=== PATIENT | female | born 1965 | race Caucasian/White ===

== ENCOUNTER 2022-05-27 17:13 | Emergency (ER) | payer BC ==
[2022-05-27 17:28] VITALS: BP 160/90
--- NOTE | 2022-05-27 20:02 | ED Physician Documentation ---
History of Present Illness - Stated complaint Stated Complaint: ABSCESS ON CHEST - Chief complaint Chief Complaint: General - History obtained from History obtained from: Patient - History of Present Illness Pain level max: 7 Pain level now: 5 - Additonal information Additional information: 57-year-old female states that over the past 5 days she has noticed swelling and redness to the breast. She states she saw her primary care provider today who stated that they felt she had a breast abscess and should go to the ER for drainage. She has had a breast abscess in the past, but that was on the lateral aspect. No fevers. No chills. Worse with palpation, nothing makes it better. Review of Systems Constitutional: denies: Fever, Chills GI: denies: Vomiting, Diarrhea PD PAST MEDICAL HISTORY - Past Medical History Past Medical History: No - Present Medications Home Medications: Ambulatory Orders Medication Instructions Recorded Confirmed Oxycodone HCl/Acetaminophen 1 - 2 each PO Q6H PRN #14 tablet 05/27/22 [Percocet 5-325 mg Tablet] MDD 6 tabs Sulfamethox/Trimeth 800/160 1 each PO BID #14 tablet 05/27/22 [Bactrim Ds 800/160] cephALEXin [Keflex] 500 mg PO Q6H #28 cap 05/27/22 - Allergies Allergies/Adverse Reactions: Allergies Allergy/AdvReac Type Severity Reaction Status Date / Time No Known Drug Allergies Allergy Verified 05/27/22 17:25 - Living Situation Living Situation: reports: With family Living Arrangement: reports: At home - Social History Does the pt have substance abuse?: No - Family History Family history: reports: Non contributory PD ED PE NORMAL - Vitals Vital signs reviewed: Yes - General General: Alert and oriented X 3, No acute distress - HEENT HEENT: Moist mucous membranes - Neck Neck: Supple, no meningeal sign - Cardiac Cardiac: RRR - Respiratory Respiratory: No respiratory distress, Clear bilaterally - Derm Derm: Warm and dry - Neuro Neuro: Alert and oriented X 3 - Free text exam Free text exam: The left breast is erythematous over the nipple, areola and about one third of the way up the breast. There is no streaking. There is a large fluctuant area on the superior aspect of the areola. There is no drainage from the nipple. No skin dimpling. Results - Vitals Vitals: Vital Signs - 24 hr 05/27/22 17:25 Temperature 36.5 C Heart Rate 99 Respiratory 16 Rate Blood Pressure 160/90 H O2 Saturation 96 Oxygen O2 Source Room air - Labs Labs: Microbiology 05/27/22 20:50 Wound Culture - Preliminary Abscess Procedures - Abscess I&D (location) Left breast Preparation: Lidocaine 1%, With epi Incision: Incised with scalpel, Needle aspiration, Purulent drainage, Loculation s broken, Irrigated, Packed, Culture obtained Other: Pt tolerated well, Dressing applied, Antibiotic prescribed PD Medical Decision Making - ED course Complexity details: reviewed results, re-evaluated patient, considered differential, d/w patient, d/w family, d/w eyewear consultant ED course: 57-year-old female with a large left breast abscess. Dr. Taylor, General surgery was consulted and came and evaluated the patient at the bedside. We then performed the incision and drainage together. Packing was placed. There were approximately 15 cc of purulent material removed from the breast. We will place on Bactrim, Keflex. Wound culture performed. Will place on pain medication for home. Patient will follow-up closely with her PCP for wound checks. Recommend mammogram after healing. Patient counseled regarding signs and symptoms for which I believe and urgent re-evaluation would be necessary. Patient with good understanding of and agreement to plan and is comfortable going home at this time This document was made in part using voice recognition software. While efforts a re made to proofread this document, sound alike and grammatical errors may occur. Departure - Departure Disposition: 01 Home, Self Care Clinical Impression: Breast abscess Condition: Good Instructions: ED Abscess IandD Follow-Up: your,doctor in 3 days for wound check [Other] Prescriptions: Sulfamethox/Trimeth 800/160 [Bactrim Ds 800/160] 1 each PO BID #14 tablet cephALEXin [Keflex] 500 mg PO Q6H #28 cap Oxycodone HCl/Acetaminophen [Percocet 5-325 mg Tablet] 1 - 2 each PO Q6H PRN #14 tablet MDD 6 tabs PRN Reason: pain Comments: Please follow-up with your doctor in 3 days for wound check. Keep the wound clean. You may remove the packing tomorrow in the shower. Please take all antibiotics until gone. You can use the medication as needed for pain. You should have a mammogram after this has healed. Your prescriptions were sent to [facility] in [place]. I am prescribing a short course of narcotic pain medication for you. These are potentially dangerous and addictive medications that should be used carefully. These medications may constipate you. Take an fmuq-ndo-buavtrl stool softener (docusate) twice daily with plenty of water while taking these medications. If you go 24 hours without a bowel movement, take mlmh-apt-fownlan miralax, per package instructions. Do not drink or drive while taking these medications. If you received narcotic or sedating medications while in the emergency department, do not drive for 24 hours. Store this medication in a safe, secure place and out of reach of children. It is a violation of federal law to give or sell this medication to another person or to use in a manner other than prescribed. The ED will not refill narcotic prescriptions, including prescriptions lost or stolen. To dispose of unwanted medications: 1. [facility] [address] in [place] has a medication drop box. They accept prescription medications (in pill form) Friday through Friday 9:00 a.m. to 5:00 p.m. 2. [facility] [employer] accepts prescription medications (in pill form only) for disposal year round. Call for more information. 3. Contact the [facility] for the next [facility] sponsored prescription drug collection event. , [phone], or [phone]; Forms: Activity restrictions Discharge Date/Time: 05/27/22 20:58
[2022-05-27] MEDS ORDERED: SULFAMETH/TRIMETH DS 800/160 MG TABLET PO STA (20:44)
[2022-05-27] MEDS ORDERED: cephALEXin 250 MG CAPSULE PO STA (20:44)
[2022-05-27] MEDS ORDERED: oxyCODONE 5 MG TABLET PO STA (20:45)
== END 2022-05-27 20:58 | disposition home or self-care (01) ==
LOC: ED 17:13
DX: N61.1 Abscess of the breast and nipple (principal)
CPT/HCPCS: 10061; 87070; 87205; 99283; 99284; A9270

== ENCOUNTER 2022-10-14 09:57 | Outpatient (CLI) | payer BC ==
--- NOTE | 2022-10-14 09:30 | XRAY Report ---
PROCEDURE: Chest 2 View X-Ray INDICATIONS: PRODUCTIVE COUGH TECHNIQUE: 2 views of the chest were acquired. COMPARISON: None. FINDINGS: Surgical changes and devices: None. Lungs and pleura: No pleural effusions or pneumothorax. Patchy left basilar atelectasis. Mediastinum: Mediastinal contours appear normal. Heart size is normal. Bones and chest wall: No suspicious bony lesions. Overlying soft tissues appear unremarkable. IMPRESSION: Patchy left basilar atelectasis. Progress films are recommended until clear. Reviewed by: Mehdi Eubanks MD on 10/14/2022 9:28 AM PDT Approved by: Mehdi Eubanks MD on 10/14/2022 9:28 AM PDT Station ID: [id number]
[2022-10-14 14:24] LABS: BASOPHILS % (AUTO) 0.6 %; EOSINOPHILS # (AUTO) 0.3 10^3/uL (0.0-0.7); EOSINOPHILS % (AUTO) 4.8 %; HGB - HEMOGLOBIN 10.4 g/dL (12.0-16.0); LYMPHOCYTES # (AUTO) 1.3 10^3/uL (1.5-3.5); LYMPHOCYTES % (AUTO) 24.7 %; MEAN CORPUSCULAR HEMOGLOBIN 31.4 pg (27.0-31.0); MEAN CORPUSCULAR HGB CONC 33.5 g/dL (32.0-36.0); MEAN CORPUSCULAR VOLUME 93.7 fL (81.0-99.0); MEAN PLATELET VOLUME 11.2 fL (7.9-10.8); MONOCYTES # (AUTO) 0.4 10^3/uL (0.0-1.0); MONOCYTES % (AUTO) 6.7 %; NEUTROPHILS # (AUTO) 3.3 10^3/uL (1.5-6.6); PLT - PLATELET COUNT 47 10^3/uL (130-450); RED BLOOD COUNT 3.31 10^6/uL (4.20-5.40); RED CELL DISTRIBUTION WIDTH 14.7 % (12.0-15.0); WHITE BLOOD COUNT 5.2 x10^3/uL (4.8-10.8)
[2022-10-14 14:46] LABS: ALBUMIN 3.2 g/dL (3.2-5.5); BILIRUBIN,TOTAL 0.9 mg/dL (0.2-1.0); CREATININE 1.4 mg/dL (0.6-1.3); POTASSIUM 4.2 mmol/L (3.5-4.5); TOTAL PROTEIN 6.3 g/dL (6.4-8.9)
[2022-10-14 14:58] LABS: THYROID STIMULATING HORMONE 1.55 uIU/mL (0.34-5.60)
== END 2022-10-14 09:58 | disposition home or self-care (01) ==
LOC: DI.S 09:57
PROVIDERS: ATTEND Physician Assistant Medical
DX: R05.9 Cough, unspecified (principal); R53.83 Other fatigue; Z13.29 Encounter for screening for other suspected endocrine disorder; J98.11 Atelectasis
CPT/HCPCS: 36415; 80053; 84443; 85025

== ENCOUNTER 2022-12-15 11:40 | Emergency (ER) | payer BC ==
--- NOTE | 2022-12-15 15:09 | ED Physician Documentation ---
History of Present Illness - Stated complaint Stated Complaint: HBP,NAUSEA,MCGINNIS - Chief complaint Chief Complaint: General - Additonal information Additional information: 57-year-old female was brought to the emergency department by her partner for evaluation of elevated blood pressures and her partner is concerned that she is acting foggy and spacey. She does have a history of hypertension. Was seen in this ED on 11/26/2022 for concerns of hypertension, headache and brain fog. Work-up at that time was unremarkable. CT of the head was negative. She did receive a single dose of clonidine in the ER. And follow-up with her primary care provider her lisinopril was increased to 40 mg a day and she was started on hydrochlorothiazide. Partner states that they have been checking her blood pressures at home on her wrist and they have been as high as 220 systolic. The patient denies chest pain or shortness of air. No leg swelling. No headache today. No focal neurodeficits. Denying abdominal pain nausea and vomiting. Patient is scheduled to see cardiology for an echo next week. Review of Systems Constitutional: denies: Fever Nose: reports: Reviewed and negative Cardiac: reports: Reviewed and negative Respiratory: reports: Reviewed and negative GI: reports: Reviewed and negative : reports: Reviewed and negative Skin: reports: Reviewed and negative Musculoskeletal: reports: Reviewed and negative Neurologic: denies: Generalized weakness, Focal weakness, Numbness, Difficulty speaking, Confused, Headache, Head injury, LOC PD PAST MEDICAL HISTORY - Past Medical History Cardiovascular: Hypertension - Past Surgical History Past Surgical History: No - Present Medications Home Medications: Ambulatory Orders Medication Instructions Recorded Confirmed Glimepiride [Amaryl] 4 mg PO 0800 12/15/22 12/15/22 Lisinopril [Zestril] 10 mg PO DAILY 12/15/22 12/15/22 hydroCHLOROthiazide [Hydrodiuril] 25 mg PO ONCE 12/15/22 12/15/22 - Allergies Allergies/Adverse Reactions: Allergies Allergy/AdvReac Type Severity Reaction Status Date / Time No Known Drug Allergies Allergy Verified 11/26/22 15:05 - Social History Does the pt smoke?: No Smoking Status: Never smoker Does the pt drink ETOH?: No Does the pt have substance abuse?: No - Immunizations Immunizations are current?: Yes - POLST Patient has POLST: No PD ED PE NORMAL - General General: Alert and oriented X 3, No acute distress, Well developed/nourished - HEENT HEENT: Atraumatic, Moist mucous membranes - Neck Neck: Supple, no meningeal sign - Cardiac Cardiac: RRR, No murmur - Respiratory Respiratory: No respiratory distress, Clear bilaterally - Abdomen Abdomen: Normal bowel sounds, Soft - Back Back: No CVA TTP - Derm Derm: Normal color - Extremities Extremities: No deformity - Neuro Neuro: Alert and oriented X 3, 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 Relevant findings are: Rate: Rate (enter#) Rhythm: NSR [place]: Normal Intervals: Normal WI. No: Prolonged QT QRS: Normal Ischemia: Q waves (v2-4) Compare to prior EKG: Unchanged from prior EKG Computer interpretation: Agree with computer - Labs Labs: Laboratory Tests 12/15/22 12/15/22 15:23 15:23 WBC 5.4 RBC 3.70 L Hgb 11.1 L Hct 33.2 L MCV 89.7 MCH 30.0 MCHC 33.4 RDW 14.8 Plt Count 41 L MPV 11.5 H Neut # (Auto) 3.6 Lymph # (Auto) 1.2 L Payette # (Auto) 0.3 Eos # (Auto) 0.3 Baso # (Auto) 0.0 Absolute Nucleated RBC 0.00 Nucleated RBC % 0.0 Sodium 135 Potassium 3.7 Chloride 101 Carbon Dioxide 31 Anion Gap 3.0 L BUN 28 H Creatinine 1.5 H Estimated GFR (MDRD) 36 L Glucose 196 H Calcium 9.7 Total Bilirubin 1.2 H AST 23 ALT 16 Alkaline Phosphatase 73 Total Protein 6.6 Albumin 3.6 Globulin 3.0 Albumin/Globulin Ratio 1.2 Lipase 48 - Rads (name of study) cxr Relevant Findings:: Final report received (Portable chest within normal limits for age.) PD Medical Decision Making - ED course Complexity details: reviewed results, re-evaluated patient, considered dif ferential, d/w patient, d/w family ED course: 57-year-old female presents to the emergency department for evaluation of elevated blood pressure readings at home as well as her partners can discern that the patient has had episodes of confusion and brain fogging. This has been intermittent over the last several weeks. She describes her partner is acting and behaving normally yesterday but today she found her somewhat confused. She did have a similar ED visit 11/26/2022 for similar. At that time CT of the head was negative. She was noted to have modest hypertension and received clonidine in the ER. Patient followed up with her primary care doctor and had her lisinopril dosing increased to 40 mg daily as well as was started on hydrochlorothiazide. On presentation to the emergency department today her blood pressure is modestly elevated 155/88 and then again 158/82. EKG was sinus. No fevers. No hypoxia. Clinical exam reveals no focal neurodeficits. Very fluid speech oriented person place time and situation. Twelve-lead EKG was nonischemic. A chest x-ray showed no findings focal consolidation pneumonia pneumothorax or pleural effusion. We did reobtain CBC and electrolytes. Per my interpretation essentially unchanged anemia with a hemoglobin of 11.1. No left shift. She does have a modest thrombocytopenia with a platelet count of 41 but again unchanged from baseline. She has what appears to be chronic kidney disease with an unchanged BUN of 28 and a creatinine of 1.5 today. Patient and her partner report that she is scheduled to undergo an echocardiogram in several weeks. Clinically I considered stroke or CVA however given no focal neurodeficits and recent negative CT imaging I deferred repeat CT head of the today. Her NIHSS on presentation is 0. I considered electrolyte abnormality but no significant or worrisome derangement that would be causative of brain fogging. The patient does have a long history of alcohol use disorder though she quit 12 years ago. I am encouraging patient and her partner to follow closely with PCP. She may benefit from outpatient neuropsychiatric evaluation or even consideration of early dementia. Regarding the patient's blood pressure no evidence today of hypertensive urgency or emergency. She will follow closely with PCP. I did asked them to consider discussing the use of an MICHELLE inhibitor in the setting of chronic kidney disease and discussed possibility of all other alternatives. Departure - Departure Disposition: 01 Home, Self Care Clinical Impression: Confusion Hypertension Qualifiers: Hypertension type: primary hypertension Qualified Code(s): I10 - Essential (primary) hypertension CKD (chronic kidney disease) Qualifiers: Chronic kidney disease stage: unspecified stage Qualified Code(s): N18.9 - Chronic kidney disease, unspecified Condition: Stable Follow-Up: AUSTYN WHIPPLE MD [Primary Care Provider] - Comments: Kendy you are seen today in the emergency department for concerns of brain fogging or confusion as well as elevated blood pressure. Your blood pressures today have been about 1 50-1 60 systolic. I would recommend that you continue checking your blood pressure just before you take your a.m. meds and several hours afterwards. Please use an appropriate sized cuff on your upper arm. Reasons to return to the emergency department regarding your blood pressure would be the development of any new sudden severe headache, uncontrolled vomiting, chest pain, shortness of air. Your partner is confused that you have had some brain fogging and confusion that comes and goes. A CT of the head completed on 26 November was normal. I would recommend that you obtain an outpatient MRI for further evaluation of the symptoms. Your primary doctor can also consider referral for neurocognitive evaluation. However there was nothing today in your labs or clinical exam that would warrant an admission or further evaluation in the ER. If you develop slurred speech, have facial droop, focal weakness in your arms or legs then please return immediately to the ER. Forms: PCP List
--- NOTE | 2022-12-15 15:16 | XRAY Report ---
PROCEDURE: Chest 1 View X-Ray INDICATIONS: Chest pain TECHNIQUE: One view of the chest was acquired. COMPARISON: 10/14/2022 FINDINGS: Surgical changes and devices: None. Lungs and pleura: No pleural effusions or pneumothorax. Lungs are clear. Mediastinum: The aorta is prominent and tortuous. The cardiac contours are within normal limits. Bones and chest wall: No suspicious bony lesions. Age-appropriate degenerative changes are seen. O verlying soft tissues appear unremarkable. IMPRESSION: Portable chest within normal limits for age. Reviewed by: Narendra Valiente MD on 12/15/2022 2:14 PM NANCY Approved by: Narendra Valiente MD on 12/15/2022 2:14 PM NANCY Station ID: [id number]
[2022-12-15 15:31] LABS: BASOPHILS % (AUTO) 0.6 %; EOSINOPHILS # (AUTO) 0.3 10^3/uL (0.0-0.7); EOSINOPHILS % (AUTO) 4.8 %; HCT - HEMATOCRIT 33.2 % (37.0-47.0); HGB - HEMOGLOBIN 11.1 g/dL (12.0-16.0); LYMPHOCYTES # (AUTO) 1.2 10^3/uL (1.5-3.5); LYMPHOCYTES % (AUTO) 22.9 %; MEAN CORPUSCULAR HGB CONC 33.4 g/dL (32.0-36.0); MEAN CORPUSCULAR VOLUME 89.7 fL (81.0-99.0); MEAN PLATELET VOLUME 11.5 fL (7.9-10.8); MONOCYTES # (AUTO) 0.3 10^3/uL (0.0-1.0); MONOCYTES % (AUTO) 5.9 %; NEUTROPHILS # (AUTO) 3.6 10^3/uL (1.5-6.6); NEUTROPHILS % (AUTO) 65.6 %; PLT - PLATELET COUNT 41 10^3/uL (130-450); RED CELL DISTRIBUTION WIDTH 14.8 % (12.0-15.0); WHITE BLOOD COUNT 5.4 x10^3/uL (4.8-10.8)
[2022-12-15 15:46] LABS: ALBUMIN 3.6 g/dL (3.2-5.5); ALBUMIN/GLOBULIN RATIO 1.2 (1.0-2.2); BILIRUBIN,TOTAL 1.2 mg/dL (0.2-1.0); CALCIUM 9.7 mg/dL (8.5-10.3); CREATININE 1.5 mg/dL (0.6-1.3); POTASSIUM 3.7 mmol/L (3.5-4.5); TOTAL PROTEIN 6.6 g/dL (6.4-8.9)
[2022-12-15 16:34] VITALS: BP 160/94; O2SAT 97
== END 2022-12-15 16:32 | disposition home or self-care (01) ==
LOC: ED 11:40
DX: I12.9 Hypertensive chronic kidney disease with stage 1 through stage 4 chronic kidney disease, or unspecified chronic kidney disease (principal); N18.9 Chronic kidney disease, unspecified; R41.0 Disorientation, unspecified
CPT/HCPCS: 36415; 80053; 83690; 84484; 85025; 93005; 99284

== ENCOUNTER 2023-02-24 11:04 | Outpatient (CLI) | payer BC | END 2023-02-24 23:59 | disposition critical access hospital (66) | LOC: EMS 11:04 | DX: R41.0 Disorientation, unspecified (principal); R32 Unspecified urinary incontinence | CPT/HCPCS: A0425; A0429 ==

== ENCOUNTER 2023-02-24 11:30 | Inpatient (IN) | payer BC ==
[2023-02-24 12:09] LABS: VBG BASE EXCESS 4.2 mmol/L (-2 - +2); VBG HCO3 30.3 mmol/L (23-28); VBG OXYGEN SATURATION 49.7 % (60-80); VBG PCO2 51.6 mmHg (41-51); VBG PH 7.386 (7.31-7.41); VBG PO2 27.7 mmHg (25-47); VBG TOTAL CO2 31.8 mmol/L (24-29)
--- NOTE | 2023-02-24 12:12 | XRAY Report ---
PROCEDURE: Chest 1V INDICATIONS: AMS TECHNIQUE: One view of the chest was acquired. COMPARISON: None. FINDINGS: Surgical changes and devices: None. Lungs and pleura: No pleural effusions or pneumothorax. Lungs are clear. Mediastinum: Mediastinal contours appear normal. Heart size is normal. Bones and chest wall: No suspicious bony lesions. Overlying soft tissues appear unremarkable. IMPRESSION: No acute cardiopulmonary process. Reviewed by: Inder Dominguez MD on 02/24/2023 12:10 PM PST Approved by: Inder Dominguez MD on 02/24/2023 12:10 PM PST Station ID: [id number]
[2023-02-24 12:15] LABS: BASOPHILS % (AUTO) 0.6 %; EOSINOPHILS # (AUTO) 0.2 10^3/uL (0.0-0.7); EOSINOPHILS % (AUTO) 4.6 %; HCT - HEMATOCRIT 34.1 % (37.0-47.0); HGB - HEMOGLOBIN 11.4 g/dL (12.0-16.0); LYMPHOCYTES # (AUTO) 0.9 10^3/uL (1.5-3.5); MEAN CORPUSCULAR HEMOGLOBIN 30.7 pg (27.0-31.0); MEAN CORPUSCULAR HGB CONC 33.4 g/dL (32.0-36.0); MEAN CORPUSCULAR VOLUME 91.9 fL (81.0-99.0); MEAN PLATELET VOLUME 9.7 fL (7.9-10.8); MONOCYTES # (AUTO) 0.4 10^3/uL (0.0-1.0); MONOCYTES % (AUTO) 7.5 %; NEUTROPHILS # (AUTO) 3.6 10^3/uL (1.5-6.6); NEUTROPHILS % (AUTO) 68.9 %; RED BLOOD COUNT 3.71 10^6/uL (4.20-5.40); RED CELL DISTRIBUTION WIDTH 15.2 % (12.0-15.0); WHITE BLOOD COUNT 5.2 x10^3/uL (4.8-10.8)
[2023-02-24 12:18] LABS: INR 1.2 (0.8-1.2); PT - PROTHROMBIN TIME 12.8 secs (9.9-12.6)
[2023-02-24 12:24] LABS: ALBUMIN 3.5 g/dL (3.2-5.5); ALKALINE PHOSPHATASE 70 IU/L (42-121); ALT ALANINE AMINOTRANSFERASE 18 IU/L (10-60); AST ASPARTATE AMINOTRANSFERASE 25 IU/L (10-42); BILIRUBIN,TOTAL 1.4 mg/dL (0.2-1.0); BUN - BLOOD UREA NITROGEN 28 mg/dL (6-20); CALCIUM 9.4 mg/dL (8.5-10.3); CARBON DIOXIDE - CO2 32 mmol/L (21-32); CHLORIDE 106 mmol/L (101-111); CREATININE 1.6 mg/dL (0.6-1.3); ETOH - ETHANOL < 10.0 mg/dL; GFR - MDRD 33 (>89); GLUCOSE 278 mg/dL (74-104); LIPASE 54 U/L (11-82); MAGNESIUM 1.6 mg/dL (1.7-2.3); POTASSIUM 4.1 mmol/L (3.5-4.5); SODIUM 142 mmol/L (135-145); TOTAL PROTEIN 6.9 g/dL (6.4-8.9)
[2023-02-24 12:32] LABS: PLATELET ESTIMATE, MANUAL DECREASED (<130,000) (NORMAL); PLATELET MORPHOLOGY NORMAL APPEARANCE (NORMAL); PLT - PLATELET COUNT 33 10^3/uL (130-450); SLIDE REVIEW? Indicated
[2023-02-24 12:35] LABS: RBC MORPHOLOGY (MULTIPLE) 1+ ANISOCYTOSIS (NORMAL)
[2023-02-24 12:36] LABS: WBC MORPHOLOGY (MULTIPLE) NORMAL APPEARANCE (NORMAL)
[2023-02-24 12:38] LABS: THYROID STIMULATING HORMONE 2.44 uIU/mL (0.34-5.60)
[2023-02-24 12:41] LABS: SALICYLATE < 1.5 mg/dL
[2023-02-24 12:42] LABS: ACETAMINOPHEN < 0.1 ug/mL
[2023-02-24] MEDS ORDERED: LACTULOSE 10 GM /15 ML UDC PO STA (12:42)
[2023-02-24 13:12] LABS: BILIRUBIN,URINE NEGATIVE (NEGATIVE); GLUCOSE, URINE (UA) 100 mg/dL (NEGATIVE); KETONES,URINE (UA) NEGATIVE (NEGATIVE); LEUKOCYTE ESTERASE, URINE NEGATIVE (NEGATIVE); NITRITE,URINE NEGATIVE (NEGATIVE); OCCULT BLOOD,URINE LARGE (NEGATIVE); PH,URINE 7.5 PH (5.0-7.5); PROTEIN,URINE 30 mg/dL (NEGATIVE); UROBILINOGEN,URINE 2 E.U./dL (NORMAL)
[2023-02-24 13:25] LABS: CLARITY,URINE CLEAR (CLEAR)
[2023-02-24 13:26] LABS: BACTERIA,URINE None Seen /HPF (None Seen); SQUAMOUS EPITHELIAL CELL,UR FEW Squamous (<= Few); WBC,URINE 0-3 /HPF (0-5)
--- NOTE | 2023-02-24 13:37 | CT Report ---
PROCEDURE: HEAD WO INDICATIONS: AMS TECHNIQUE: Noncontrast 4.5 mm thick angled axial sections acquired from the foramen magnum to the vertex. For r adiation dose reduction, the following was used: automated exposure control, adjustment of mA and/or kV according to patient size. COMPARISON: None. FINDINGS: Image quality: Excellent. CSF spaces: Basal cisterns are patent. No extra-axial fluid collections. Ventricles are normal in size and shape. Brain: No midline shift. No intracranial masses or hemorrhage. Goss-white matter interface is norm al. Leukoaraiosis, commonly caused by chronic small vessel ischemic disease. Age-related volume loss . Skull and face: Calvarium and visualized facial bones are intact, without suspicious lesions. Sinuses: Visualized sinuses and mastoids are clear. IMPRESSION: No acute intracranial pathology. Reviewed by: Inder Dominguez MD on 02/24/2023 1:36 PM [facility] Approved by: Inder Dominguez MD on 02/24/2023 1:36 PM [facility] Station ID: [id number]
--- NOTE | 2023-02-24 13:42 | ED Physician Documentation ---
PD HPI ALTERED MENTAL STATUS - Stated complaint Stated Complaint: AMS - Chief complaint Chief Complaint: Neuro - History obtained from History obtained from: Patient - Additional information Additional information: 57-year-old female with history of diabetes, COPD, remote history of alcohol abuse (sober 12+ years per partner) presents by EMS from home for altered mental status. History obtained from EMS and the patient's partner Katina. Per patient's partner the patient has had intermittent episodes of confusion since November. Normally these are resolved by sending the patient back to bed and sleeping for a little bit, however today was different. She woke up around 6 AM and noticed that the patient was walking around asking where the restroom was and urinating on herself while walking around. She tried to clean her up and put her back to bed, but when she woke up several hours later she was still confused and altered and called 911. EMS reported that Accu-Chek was 270 in route. They administered some IV fluids and transported her for further evaluation. On assessment patient has her eyes closed. Denies pain or complaints, she does not know why she is in the emergency department. Review of Systems Unable to obtain: Confused PD PAST MEDICAL HISTORY - Past Medical History Cardiovascular: Hypertension - Past Surgical History Past Surgical History: No - Present Medications Home Medications: Ambulatory Orders Medication Instructions Recorded Confirmed Glimepiride [Amaryl] 4 mg PO 0800 12/15/22 02/24/23 Lisinopril [Zestril] 10 mg PO DAILY 12/15/22 02/24/23 hydroCHLOROthiazide [Hydrodiuril] 25 mg PO ONCE 12/15/22 02/24/23 - Allergies Allergies/Adverse Reactions: Allergies Allergy/AdvReac Type Severity Reaction Status Date / Time No Known Drug Allergies Allergy Verified 11/26/22 15:05 - Social History Does the pt smoke?: No Smoking Status: Never smoker Does the pt drink ETOH?: No Does the pt have substance abuse?: No - Immunizations Immunizations are current?: Yes - POLST Patient has POLST: No PD ED PE NORMAL - Vitals Vital signs reviewed: Yes - General General: No acute distress, Other (AO x 1, eyes closed, open to voice, appears chronically unwell) - HEENT HEENT: Atraumatic, PERRL, EOMI - Cardiac Cardiac: RRR, Strong equal pulses - Respiratory Respiratory: No respiratory distress - Abdomen Abdomen: Soft, Non tender, Non distended - Derm Derm: Warm and dry, Other (caput medusa on abdomen) - Extremities Extremities: No deformity, No tenderness to palpate, Normal ROM s pain - Neuro 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 Moves all extremities. Oriented to self only) Results - Vitals Vitals: Vital Signs - 24 hr 02/24/23 02/24/23 11:39 14:03 Temperature 37.1 C Heart Rate 76 77 Respiratory 18 18 Rate Blood Pressure 194/103 H 179/89 H O2 Saturation 95 97 If not protocol 2 : Oxygen Flow, liters/minute Oxygen O2 Source Nasal cannula - Labs Labs: Laboratory Tests 02/24/23 02/24/23 02/24/23 11:53 11:53 11:53 WBC 5.2 RBC 3.71 L Hgb 11.4 L Hct 34.1 L MCV 91.9 MCH 30.7 MCHC 33.4 RDW 15.2 H Plt Count 33 L* MPV 9.7 Neut # (Auto) 3.6 Lymph # (Auto) 0.9 L [place] # (Auto) 0.4 Eos # (Auto) 0.2 Baso # (Auto) 0.0 Absolute Nucleated RBC 0.00 Nucleated RBC % 0.0 Manual Slide Review Indicated WBC Morphology NORMAL APPEARANCE Platelet Estimate DECREASED (<130,000) Platelet Morphology NORMAL APPEARANCE RBC Morph Micro Appear 1+ ANISOCYTOSIS PT 12.8 H INR 1.2 VBG pH VBG pCO2 VBG pO2 VBG HCO3 VBG Total CO2 VBG O2 Saturation VBG Base Excess Sodium 142 Potassium 4.1 Chloride 106 Carbon Dioxide 32 Anion Gap 4.0 L BUN 28 H Creatinine 1.6 H Estimated GFR (MDRD) 33 L Glucose 278 H Lactic Acid Calcium 9.4 Magnesium 1.6 L Total Bilirubin 1.4 H AST 25 ALT 18 Alkaline Phosphatase 70 Ammonia Total Protein 6.9 Albumin 3.5 Globulin 3.4 Albumin/Globulin Ratio 1.0 Lipase 54 TSH 2.44 Urine Color Urine Clarity Urine pH Ur Specific [place] Urine Protein Urine Glucose (UA) Urine Ketones Urine Occult Blood Urine Nitrite Urine Bilirubin Urine Urobilinogen Ur Leukocyte Esterase Urine RBC Urine WBC Ur Squamous Epith Cells Urine Bacteria Ur Microscopic Review Urine Culture Comments Salicylates < 1.5 Urine Opiates Screen Ur Buprenorphine Scrn Ur Oxycodone Screen Urine Methadone Screen Acetaminophen < 0.1 Ur Barbiturates Screen Ur Tricyclics Screen Ur Phencyclidine Scrn Ur Amphetamine Screen U Methamphetamines Scrn U Benzodiazepines Scrn Urine Cocaine Screen U Cannabinoids Screen Ur Drug Screen Comment Ethyl Alcohol < 10.0 02/24/23 02/24/23 02/24/23 11:53 11:59 11:59 WBC RBC Hgb Hct MCV MCH MCHC RDW Plt Count MPV Neut # (Auto) Lymph # (Auto) [place] # (Auto) Eos # (Auto) Baso # (Auto) Absolute Nucleated RBC Nucleated RBC % Manual Slide Review WBC Morphology Platelet Estimate Platelet Morphology RBC Morph Micro Appear PT INR VBG pH 7.386 VBG pCO2 51.6 H VBG pO2 27.7 VBG HCO3 30.3 H VBG Total CO2 31.8 H VBG O2 Saturation 49.7 L VBG Base Excess 4.2 H Sodium Potassium Chloride Carbon Dioxide Anion Gap BUN Creatinine Estimated GFR (MDRD) Glucose Lactic Acid 1.0 Calcium Magnesium Total Bilirubin AST ALT Alkaline Phosphatase Ammonia 85.5 H* Total Protein Albumin Globulin Albumin/Globulin Ratio Lipase TSH Urine Color Urine Clarity Urine pH Ur Specific [place] Urine Protein Urine Glucose (UA) Urine Ketones Urine Occult Blood Urine Nitrite Urine Bilirubin Urine Urobilinogen Ur Leukocyte Esterase Urine RBC Urine WBC Ur Squamous Epith Cells Urine Bacteria Ur Microscopic Review Urine Culture Comments Salicylates Urine Opiates Screen Ur Buprenorphine Scrn Ur Oxycodone Screen Urine Methadone Screen Acetaminophen Ur Barbiturates Screen Ur Tricyclics Screen Ur Phencyclidine Scrn Ur Amphetamine Screen U Methamphetamines Scrn U Benzodiazepines Scrn Urine Cocaine Screen U Cannabinoids Screen Ur Drug Screen Comment Ethyl Alcohol 02/24/23 02/24/23 12:00 13:01 WBC RBC Hgb Hct MCV MCH MCHC RDW Plt Count MPV Neut # (Auto) Lymph # (Auto) [place] # (Auto) Eos # (Auto) Baso # (Auto) Absolute Nucleated RBC Nucleated RBC % Manual Slide Review WBC Morphology Platelet Estimate Platelet Morphology RBC Morph Micro Appear PT INR VBG pH VBG pCO2 VBG pO2 VBG HCO3 VBG Total CO2 VBG O2 Saturation VBG Base Excess Sodium Potassium Chloride Carbon Dioxide Anion Gap BUN Creatinine Estimated GFR (MDRD) Glucose Lactic Acid Calcium Magnesium Total Bilirubin AST ALT Alkaline Phosphatase Ammonia Total Protein Albumin Globulin Albumin/Globulin Ratio Lipase TSH Urine Color YELLOW Urine Clarity CLEAR Urine pH 7.5 Ur Specific [place] 1.010 Urine Protein 30 H Urine Glucose (UA) 100 H Urine Ketones NEGATIVE Urine Occult Blood LARGE H Urine Nitrite NEGATIVE Urine Bilirubin NEGATIVE Urine Urobilinogen 2 H Ur Leukocyte Esterase NEGATIVE Urine RBC 11-25 H Urine WBC 0-3 Ur Squamous Epith Cells FEW Squamous Urine Bacteria None Seen Ur Microscopic Review INDICATED Urine Culture Comments NOT INDICATED Salicylates Urine Opiates Screen NEGATIVE Ur Buprenorphine Scrn NEGATIVE Ur Oxycodone Screen NEGATIVE Urine Methadone Screen NEGATIVE Acetaminophen Ur Barbiturates Screen NEGATIVE Ur Tricyclics Screen NEGATIVE Ur Phencyclidine Scrn NEGATIVE Ur Amphetamine Screen NEGATIVE U Methamphetamines Scrn NEGATIVE U Benzodiazepines Scrn NEGATIVE Urine Cocaine Screen NEGATIVE U Cannabinoids Screen NEGATIVE Ur Drug Screen Comment CUTOFF CONC BELOW: Ethyl Alcohol PD Medical Decision Making - ED course Complexity details: reviewed old records, reviewed results, re-evaluated patient, considered differential, d/w patient, d/w family ED course: Altered mental status and patient with remote history of alcohol use disorder. No focal deficit, patient's eyes are closed and she is obviously confused, but moves all extremities and currently denies complaints. Laboratory work is significant for thrombocytopenia with platelets 33, patient's baseline platelet count appears to be in the low 40s. INR 1.2, Creatinine 1.6, not significantly changed from baseline. Total bilirubin 1.4, not changed from baseline, AST and ALT are within normal limits. Patient's ammonia level 85.5, likely contributing to patient's mental status. P.o. lactulose ordered. CT brain and chest x-ray showed no acute processes. Nursing reports patient had coughing episode with wheezing and was placed on supplemental nasal cannula. Soft expiratory wheezes heard, patient is long-time smoker but partner denies hx of COPD. Patient is unable to tolerate p.o. lactulose, unable to follow directions to swallow the liquid. Discussed case with patient's partner, who is amenable to NG tube placement for lactulose administration. Patient to be admitted to hospitalist service for further treatment Departure - Departure Disposition: 66 [facility] DC/Xfer Clinical Impression: Metabolic encephalopathy Cirrhosis Qualifiers: Hepatic cirrhosis type: unspecified hepatic cirrhosis Ascites presence: without ascites Qualified Code(s): K74.60 - Unspecified cirrhosis of liver Condition: Stable Discharge Date/Time: 02/24/23 16:45
[2023-02-24 14:20] LABS: COCAINE SCREEN URINE NEGATIVE (NEGATIVE); METHAMPHETAMINES SCREEN, URINE NEGATIVE (NEGATIVE); THC CANNABINOID SCREEN, URINE NEGATIVE (NEGATIVE)
[2023-02-24 14:21] LABS: AMPHETAMINE SCREEN,URINE NEGATIVE (NEGATIVE); BARBITURATE SCREEN,UR NEGATIVE (NEGATIVE); BENZODIAZEPINES SCREEN, URINE NEGATIVE (NEGATIVE); BUPRENORPHINE SCREEN, URINE NEGATIVE (NEGATIVE); METHADONE SCREEN, URINE NEGATIVE (NEGATIVE); OPIATE SCREEN, URINE NEGATIVE (NEGATIVE); OXYCODONE SCREEN, URINE NEGATIVE (NEGATIVE); TRICYCLIC ANTIDEPRESSANT,URINE NEGATIVE (NEGATIVE)
--- NOTE | 2023-02-24 14:35 | Ultrasound Report ---
PROCEDURE: Abdomen Limited INDICATIONS: LIVER DISEASE TECHNIQUE: Real-time focused scanning was performed of the abdomen, with image documentation. COMPARISONS: None. FINDINGS: Liver: Cirrhotic liver morphology. No definite mass, although evaluation is suboptimal due to patien t's dyspnea. Patent portal vein and hepatic vein. Recannulized umbilical vein. Gallbladder: Diffuse wall thickening due to underlying liver disease. Negative sonographic [place] sig n. No stones. Biliary ducts: Intrahepatic bile ducts are non-dilated. Extrahepatic bile duct caliber measures 3 m m. Normal is 6-7 mm or less in diameter, or 10 mm or less post-cholecystectomy. Pancreas: Not well visualized due to overlying bowel gas. IMPRESSION: Cirrhosis with portal hypertension. No definite mass. Reviewed by: Inder Dominguez MD on 02/24/2023 2:34 PM PST Approved by: Inder Dominguez MD on 02/24/2023 2:34 PM PST Station ID: [id number]
[2023-02-24] MEDS ORDERED: IPRATROPIUM/ALBUTEROL 3 ML NEB INH STA (15:06)
[2023-02-24] MEDS ORDERED: SODIUM CHLORIDE FLUSH 0.9% 10 ML SYRINGE IVP PRN (15:11)
[2023-02-24] MEDS ORDERED: ONDANSETRON 4 MG/2 ML VIAL IVP PRN (15:11)
--- NOTE | 2023-02-24 15:18 | HISTORY & PHYSICAL EXAMINATION ---
Chief Complaint - Chief Complaint Chief Complaint: Confusion History of Present Illness - Admitted From Admitted From:: ED - History Obtained From Records Reviewed: Yes History obtained from: Partner - History of Present Illness HPI Comment/Other: Patient is a 57-year-old female with past medical history of type 2 diabetes, alcoholic cirrhosis (sober 12 years), hypertension who presented to the ED due to progressively worsening confusion since November. Her partner reports that her symptoms peaked today and she noticed the patient was walking around asking where the restroom was and urinating on herself. In the ED a CT head was performed which was unremarkable. Right upper quadrant ultrasound was also performed showing cirrhosis with portal hypertension. Patient was noted to have an elevated ammonia and was started on lactulose via NG tube placement and she was unable to swallow. Patient also had hematuria and there is some suspicion for urinary tract infection. There has been continued workup regarding the source of her encephalopathy. She recently had a neurology follow-up where they performed an MRI which revealed evidence of some encephalomalacia. She is also had a TTE which shows a preserved EF. Patient had an A1c of 7.6 in December. She does follow-up with a communications technologist in [place] named Dr. Bonilla. Partner reports that she has yearly EGDs and has a history of a duodenal polyp removal. Unclear if patient has any esophageal varices. Had been on lactulose many years ago but was discontinued and she had been fine off of it. Patient is a full code. History - Past Medical History Cardiovascular: reports: Hypertension MRSA Hx?: No - Family & Social History Living Situation: With family - POLST Patient has POLST: No Meds/Allgy - Home Medications Home Medications: Ambulatory Orders Medication Instructions Recorded Confirmed Glimepiride [Amaryl] 4 mg PO 0800 12/15/22 02/24/23 Lisinopril [Zestril] 10 mg PO DAILY 12/15/22 02/24/23 hydroCHLOROthiazide [Hydrodiuril] 25 mg PO ONCE 12/15/22 02/24/23 - Allergies Allergies/Adverse Reactions: Allergies Allergy/AdvReac Type Severity Reaction Status Date / Time No Known Drug Allergies Allergy Verified 11/26/22 15:05 Review of Systems - All Other Systems All Other Systems: reports: Other (Unable to accurately assess due to encephalopathy.) Prior Level of Functionality: Independent at home. Exam - Vital Signs Reviewed Vital Signs: Yes Vital Signs: Vital Signs x48h Temp Pulse Resp BP Pulse Ox O2 Flow Rate 02/24/23 14:03 77 18 179/89 H 97 2 02/24/23 11:39 37.1 C 76 18 194/103 H 95 - Physical Exam General Appearance: positive: No acute distress, Lethargic Eyes Bilateral: positive: Normal inspection Respiratory: positive: Chest non-tender, Breath sounds nml Cardiovascular: positive: Regular rate & rhythm, No murmur, No gallop Abdomen: positive: Non-tender, No distention Skin: positive: Color nml, Warm, Dry, Cyanosis Extremities: positive: Non-tender, No pedal edema Neurologic/Psychiatric: positive: Disoriented to person, Disoriented to place, Disoriented to time Conclusion/Plan - Problem List (1) Hepatic encephalopathy Conclusion/Plan: --Started on Lactulose 30 mg QID via NGT. Can remove NGT once she is able to tolerate PO. Titrate to 2-3 bowel movements daily. --CT head is unremarkable. --Prior MRI performed by her neurologist did show evidence of encephalomalacia. --Follows with Dr. Bonilla in [place] who performs yearly surveillance EGDs. I was not able elucidate if she has any esophageal varices but it appears her portal pressures are elevated. --Has no drank any EtOH in 12 years. (2) Hypertension Conclusion/Plan: --Resume home lisinopril/HCTZ due to elevated BP. Qualifiers: Hypertension type: primary hypertension Qualified Code(s): I10 - Essential (primary) hypertension (3) Type 2 diabetes mellitus Conclusion/Plan: --A1c 7.8 in December. --SSI ordered. --She is on glimiperide at home. Holding. (4) CKD (chronic kidney disease) Conclusion/Plan: --Baseline creatinine is near 1.4. Qualifiers: Chronic kidney disease stage: unspecified stage Qualified Code(s): N18.9 - Chronic kidney disease, unspecified (5) Thrombocytopenia Conclusion/Plan: --Platelet count is at baseline. --Holding Heparin products. - Lab Results Fish Bones: 02/24/23 11:53 02/24/23 11:53 - Diagnostic Imaging Results Diagnostic Imaging Results: positive: Final report reviewed
[2023-02-24] MEDS ORDERED: LORazepam 2 MG/ML VIAL IVP STA (15:44)
--- NOTE | 2023-02-24 16:49 | XRAY Report ---
PROCEDURE: Chest 1V INDICATIONS: line placement TECHNIQUE: One view of the chest was acquired. COMPARISON: None. FINDINGS: Surgical changes and devices: Gastric tube passes below the diaphragm. Lungs and pleura: No pleural effusions or pneumothorax. Lungs are clear. Mediastinum: Mediastinal contours appear normal. Heart size is normal. Bones and chest wall: No suspicious bony lesions. Overlying soft tissues appear unremarkable. IMPRESSION: Gastric tube passes below the diaphragm, likely within the stomach. Reviewed by: Inder Dominguez MD on 02/24/2023 4:48 PM PST Approved by: Inder Dominguez MD on 02/24/2023 4:48 PM PST Station ID: [id number]
[2023-02-24] MEDS ORDERED: HALOPERIDOL 5 MG/ML VIAL IM ONE (17:25)
[2023-02-24] MEDS ORDERED: hydroCHLOROthiazide 25 MG TABLET PO SCH (18:00)
[2023-02-24] MEDS: LACTULOSE 10 GM /15 ML UDC PO SCH ×2 (18:23→21:59)
[2023-02-24] MEDS: SODIUM CHLORIDE FLUSH 0.9% 10 ML SYRINGE IVP SCH ×2 (18:23→23:56)
[2023-02-24] MEDS: INSULIN REGULAR HUMAN 300 UNIT/3 ML VIAL SUBQ SCH ×2 (18:53→23:54)
[2023-02-24] MEDS: rifAXIMin 550 MG TABLET PO SCH (22:00)
[2023-02-25 05:45] LABS: BASOPHILS % (AUTO) 0.6 %; EOSINOPHILS # (AUTO) 0.3 10^3/uL (0.0-0.7); EOSINOPHILS % (AUTO) 5.1 %; HCT - HEMATOCRIT 32.8 % (37.0-47.0); HGB - HEMOGLOBIN 10.7 g/dL (12.0-16.0); LYMPHOCYTES # (AUTO) 1.3 10^3/uL (1.5-3.5); LYMPHOCYTES % (AUTO) 21.2 %; MEAN CORPUSCULAR HEMOGLOBIN 30.5 pg (27.0-31.0); MEAN CORPUSCULAR HGB CONC 32.6 g/dL (32.0-36.0); MEAN CORPUSCULAR VOLUME 93.4 fL (81.0-99.0); MEAN PLATELET VOLUME 10.8 fL (7.9-10.8); MONOCYTES # (AUTO) 0.6 10^3/uL (0.0-1.0); MONOCYTES % (AUTO) 8.8 %; NEUTROPHILS % (AUTO) 64.1 %; PLT - PLATELET COUNT 36 10^3/uL (130-450); RED BLOOD COUNT 3.51 10^6/uL (4.20-5.40); RED CELL DISTRIBUTION WIDTH 15.5 % (12.0-15.0); WHITE BLOOD COUNT 6.2 x10^3/uL (4.8-10.8)
[2023-02-25] MEDS: INSULIN REGULAR HUMAN 300 UNIT/3 ML VIAL SUBQ SCH ×3 (06:36→19:04)
[2023-02-25] MEDS: LACTULOSE 10 GM /15 ML UDC PO SCH ×4 (08:48→21:22)
[2023-02-25] MEDS: NICOTINE 14 MG PATCH TOP SCH (08:49)
[2023-02-25] MEDS: rifAXIMin 550 MG TABLET PO SCH ×2 (08:52→21:38)
[2023-02-25] MEDS: SODIUM CHLORIDE FLUSH 0.9% 10 ML SYRINGE IVP SCH ×2 (08:53→17:17)
[2023-02-25] MEDS ORDERED: lisinopriL 5 MG TABLET PO SCH ×2 (09:00→12:05)
[2023-02-25] MEDS ORDERED: cefTRIAXone 2 GM in SODIUM CHLORIDE 0.9% MINIBAG 100 ML IV SCH (09:00)
[2023-02-25 09:15] LABS: INR 1.2 (0.8-1.2); PT - PROTHROMBIN TIME 13.3 secs (9.9-12.6)
[2023-02-25 09:24] LABS: ALBUMIN 3.3 g/dL (3.2-5.5); ALBUMIN/GLOBULIN RATIO 1.1 (1.0-2.2); ALKALINE PHOSPHATASE 64 IU/L (42-121); ALT ALANINE AMINOTRANSFERASE 17 IU/L (10-60); AST ASPARTATE AMINOTRANSFERASE 30 IU/L (10-42); BILIRUBIN,TOTAL 1.3 mg/dL (0.2-1.0); BUN - BLOOD UREA NITROGEN 26 mg/dL (6-20); CALCIUM 9.2 mg/dL (8.5-10.3); CARBON DIOXIDE - CO2 27 mmol/L (21-32); CHLORIDE 105 mmol/L (101-111); CREATININE 1.4 mg/dL (0.6-1.3); GFR - MDRD 38 (>89); GLUCOSE 152 mg/dL (74-104); IONIZED CALCIUM IF INDICATED NO; POTASSIUM 3.8 mmol/L (3.5-4.5); SODIUM 142 mmol/L (135-145); TOTAL PROTEIN 6.4 g/dL (6.4-8.9)
[2023-02-25 10:36] LABS: ESTIMATED AVERAGE GLUCOSE 197 mg/dL (70-100); HEMOGLOBIN A1c% 8.5 % (4.27-6.07)
[2023-02-25] MEDS ORDERED: GABAPENTIN 300 MG CAPSULE ONE (12:08)
[2023-02-25] MEDS: GABAPENTIN 300 MG CAPSULE PO SCH ×2 (12:12→21:38)
[2023-02-25] MEDS: carvediloL 3.125 MG TABLET PO SCH ×2 (12:50→17:17)
[2023-02-25] MEDS ORDERED: ACETAMINOPHEN 160 MG/5 ML SUSP UDC PO PRN (12:57)
[2023-02-25] MEDS ORDERED: lisinopriL 20 MG TABLET PO ONE (14:00)
--- NOTE | 2023-02-25 14:25 | PHARMACY PROGRESS NOTE ---
- Best Possible Medication History Admit Date and Time: 02/24/23 1511 Processed by: Pharmacy Medication History completed: Yes Patient Interview: Pt unable to participate Secondary Source(s): Written medication list, Spouse/Significant other, Physi dane records, Insurance records Patient's partner provided current medication list from the patient's [employer] portal. As the person ultimately responsible for medication therapy, providers are able to order a medication from an existing home medication list in [facility] via the "Reconcile Routine" prior to Confirmation of that medication by it support manager. Such practice is discouraged except when the physician, in their clinical judgment, deems that a medical need exists for a medication without regard to previous use.
--- NOTE | 2023-02-25 18:00 | PROVIDER PROGRESS NOTE ---
Assessment/Plan - Problem List (1) Hepatic encephalopathy Assessment/Plan: Ammonia level found to be very elevated at admission which probably explains the confusion. She was started on Lactulose 30 mg QID via NGT with plan to remove NGT once she is able to tolerate PO. CT head is unremarkable. Prior MRI performed by her Neurologist did show evidence of encephalomalacia. Follows with Dr. Bonilla, Gas Generator Operator in [place] who performs yearly surveillance abdominal imaging. Unknown if she has any esophageal varices but it appears her portal pressures are elevated. She describes no EtOH intake in 12 years. She also describes that she was on lactulose 12 years ago which she only took for several months then tapered it to off and has not needed it since. The spouse at bedside reports that her co nfusion has been for 3 months but it comes and goes and this was the worst episode in those 3-months. Plan: Continue Lactulose and will change from per NG to oral as she becomes more awake and the NG tube will eventually be removed. Plan to titrate to 2-3 bowel movements daily. Will give empiric Thiamine I updated the spouse at bedside today re: plan (2) Hematuria The U/A showed no bacteria and no cx was indicated (3) Type 2 diabetes mellitus Conclusion/Plan: A1c 7.8 in December. She is on glimiperide at home. Holding since hardly eating Plan: Fingerstick checks and SS Insulin ordered. iv to contain D5 to prevent hypoglycemia (4) CKD (chronic kidney disease) Conclusion/Plan: Baseline creatinine is near 1.4. Plan: Avoid nephrotoxins Follow BMP daily Qualifiers: Chronic kidney disease stage: unspecified stage Qualified Code(s): N18.9 - Chronic kidney disease, unspecified (5) Hypertension Conclusion/Plan: Plan: Resume home lisinopril/HCTZ due to elevated BP. Qualifiers: Hypertension type: primary hypertension Qualified Code(s): I10 - Essential (primary) hypertension (6) Thrombocytopenia Conclusion/Plan: Platelet count is at baseline (in 30's) Plan: Holding Heparin products. - Current Meds Current Meds: Current Medications Generic Name Dose Route Start Last Admin Trade Name Freq PRN Reason Stop Dose Admin Acetaminophen 320 mg 02/25/23 12:57 02/25/23 13:45 Acetaminophen 160 Mg/5 Ml Susp Udc PO 320 mg Q6HR PRN Administration Pain or Fever > 38C (100.4F) Carvedilol 3.125 mg 02/25/23 12:06 02/25/23 17:17 Carvedilol 3.125 Mg Tablet PO 3.125 mg BIDWM KAREEM Administration Gabapentin 300 mg 02/25/23 14:00 02/25/23 12:12 Gabapentin 300 Mg Capsule PO 300 mg TID KAREEM Administration Hydrochlorothiazide 25 mg 02/24/23 18:00 02/24/23 18:26 Hydrochlorothiazide 25 Mg Tablet PO 02/25/23 17:59 25 mg ONCE KAREEM Administration Insulin Human Regular 1 - 5 unit 02/24/23 18:00 02/25/23 12:38 Insulin Regular Human 300 Unit/3 Ml Vial SUBQ 1 unit Q6HR KAREEM Administration Protocol Lactulose 30 gm 02/24/23 17:00 02/25/23 17:16 Lactulose 10 Gm /15 Ml Udc PO 30 gm QID KAREEM Administration Nicotine 1 patch 02/25/23 09:00 02/25/23 08:49 Nicotine 14 Mg Patch TOP 1 patch DAILY KAREEM Administration Rifaximin 550 mg 02/24/23 21:00 02/25/23 08:52 Rifaximin 550 Mg Tablet PO 550 mg BID KAREEM Administration Sodium Chloride 10 ml 02/24/23 17:00 02/25/23 17:17 Sodium Chloride Flush 0.9% 10 Ml Syringe IVP 10 ml 0100,0900,1700 KAREEM Administration - Lab Result Fish Bone Diagrams: 02/27/23 09:02 02/27/23 09:02 - Additional Planning My Orders: My Active Orders 02/25/23 12:06 carvediloL [Coreg] 3.125 mg PO BIDWM 02/25/23 12:57 Acetaminophen [Tylenol] 320 mg PO Q6HR PRN 02/25/23 14:00 Gabapentin [Neurontin] 300 mg PO TID 02/26/23 05:00 AMMONIA [CHEM] DAILYLAB 02/26/23 09:00 hydroCHLOROthiazide [Hydrodiuril] 25 mg PO DAILY lisinopriL [Zestril] 40 mg PO DAILY Subjective - Subjective Patient Reports: Resting Comfortably, Other (Is slightly more alert and awake, is slow to respond, still has NG tube in place) Objective Vital Signs: Vital Signs - 24 hr 02/24/23 02/25/23 02/25/23 23:43 03:34 07:56 Temperature 37.1 C 37.0 C 37.3 C Heart Rate [ 80 86 Brachial] Heart Rate [ 79 Monitoring electrodes] Respiratory 20 18 18 Rate Blood Pressure 131/68 H 136/65 H 163/83 H [Right Brachial artery] O2 Saturation 94 95 96 If not protocol 3 3 2 : Oxygen Flow, liters/minute 02/25/23 02/25/23 15:56 17:00 Temperature 37.3 C Heart Rate [ 78 77 Brachial] Heart Rate [ Monitoring electrodes] Respiratory 20 Rate Blood Pressure 133/84 H 160/78 H [Right Brachial artery] O2 Saturation 95 If not protocol 3 : Oxygen Flow, liters/minute Oxygen O2 Source Nasal cannula Oxygen Flow Rate 3 I&O (Last 24 Hrs): Intake and Output Totals x24h 02/23/23 02/24/23 02/25/23 23:59 23:59 23:59 Intake Total 800 Output Total 800 Balance 0 General: Alert, Oriented x3, Other (Bradykinetic. Obese.) HEENT: Mucous membr. moist/pink, Other (Appears disheveled. Has NG tube in place. Is able to swallow around the NG tube) Neck: Supple, No JVD Neuro: Alert, Non Focal, Other (Bradykinetic. Oriented x 3 but has poor memory .) Cardiovascular: Regular rate, No murmurs Respiratory: No respiratory distress, Breath sounds nml Abdomen: Normal bowel sounds, Soft, No tenderness, Other (Obese) Extremities: No clubbing, No edema, No tenderness/swelling - Results Results: Laboratory Results WBC 6.2 x10^3/uL (4.8-10.8) 02/25/23 05:13 RBC 3.51 10^6/uL (4.20-5.40) L 02/25/23 05:13 Hgb 10.7 g/dL (12.0-16.0) L 02/25/23 05:13 Hct 32.8 % (37.0-47.0) L 02/25/23 05:13 MCV 93.4 fL (81.0-99.0) 02/25/23 05:13 MCH 30.5 pg (27.0-31.0) 02/25/23 05:13 MCHC 32.6 g/dL (32.0-36.0) 02/25/23 05:13 RDW 15.5 % (12.0-15.0) H 02/25/23 05:13 Plt Count 36 10^3/uL (130-450) L 02/25/23 05:13 MPV 10.8 fL (7.9-10.8) 02/25/23 05:13 Neut # (Auto) 4.0 10^3/uL (1.5-6.6) 02/25/23 05:13 Lymph # (Auto) 1.3 10^3/uL (1.5-3.5) L 02/25/23 05:13 [place] # (Auto) 0.6 10^3/uL (0.0-1.0) 02/25/23 05:13 Eos # (Auto) 0.3 10^3/uL (0.0-0.7) 02/25/23 05:13 Baso # (Auto) 0.0 10^3/uL (0.0-0.1) 02/25/23 05:13 Absolute Nucleated RBC 0.00 x10^3/uL 02/25/23 05:13 Nucleated RBC % 0.0 /100WBC 02/25/23 05:13 Manual Slide Review Indicated 02/24/23 11:53 WBC Morphology NORMAL APPEARANCE (NORMAL) 02/24/23 11:53 Platelet Estimate DECREASED (<130,000) (NORMAL) 02/24/23 11:53 Platelet Morphology NORMAL APPEARANCE (NORMAL) 02/24/23 11:53 RBC Morph Micro Appear 1+ ANISOCYTOSIS (NORMAL) 02/24/23 11:53 PT 13.3 secs (9.9-12.6) H 02/25/23 09:01 INR 1.2 (0.8-1.2) 02/25/23 09:01 VBG pH 7.386 (7.31-7.41) 02/24/23 11:59 VBG pCO2 51.6 mmHg (41-51) H 02/24/23 11:59 VBG pO2 27.7 mmHg (25-47) 02/24/23 11:59 VBG HCO3 30.3 mmol/L (23-28) H 02/24/23 11:59 VBG Total CO2 31.8 mmol/L (24-29) H 02/24/23 11:59 VBG O2 Saturation 49.7 % (60-80) L 02/24/23 11:59 VBG Base Excess 4.2 mmol/L (-2 - +2) H 02/24/23 11:59 Sodium 142 mmol/L (135-145) 02/25/23 09:01 Potassium 3.8 mmol/L (3.5-4.5) 02/25/23 09:01 Chloride 105 mmol/L (101-111) 02/25/23 09:01 Carbon Dioxide 27 mmol/L (21-32) 02/25/23 09:01 Anion Gap 10.0 (6-13) 02/25/23 09:01 BUN 26 mg/dL (6-20) H 02/25/23 09:01 Creatinine 1.4 mg/dL (0.6-1.3) H 02/25/23 09:01 Estimated GFR (MDRD) 38 (>89) L 02/25/23 09:01 Glucose 152 mg/dL (74-104) H 02/25/23 09:01 Estimat Average Glucose 197 mg/dL (70-100) H 02/25/23 05:13 Hemoglobin A1c % 8.5 % (4.27-6.07) H 02/25/23 05:13 Lactic Acid 1.0 mmol/L (0.5-2.2) 02/24/23 11:53 Calcium 9.2 mg/dL (8.5-10.3) 02/25/23 09:01 Ionized Calcium NO 02/25/23 09:01 Magnesium 1.6 mg/dL (1.7-2.3) L 02/24/23 11:53 Total Bilirubin 1.3 mg/dL (0.2-1.0) H 02/25/23 09:01 AST 30 IU/L (10-42) 02/25/23 09:01 ALT 17 IU/L (10-60) 02/25/23 09:01 Alkaline Phosphatase 64 IU/L (42-121) 02/25/23 09:01 Ammonia 103.2 umol/L (18-72) H* 02/25/23 12:19 Total Protein 6.4 g/dL (6.4-8.9) 02/25/23 09:01 Albumin 3.3 g/dL (3.2-5.5) 02/25/23 09:01 Globulin 3.1 g/dL (2.1-4.2) 02/25/23 09:01 Albumin/Globulin Ratio 1.1 (1.0-2.2) 02/25/23 09:01 Lipase 54 U/L (11-82) 02/24/23 11:53 TSH 2.44 uIU/mL (0.34-5.60) 02/24/23 11:53 Urine Color YELLOW 02/24/23 13:01 Urine Clarity CLEAR (CLEAR) 02/24/23 13:01 Urine pH 7.5 PH (5.0-7.5) 02/24/23 13:01 Ur Specific [place] 1.010 (1.002-1.030) 02/24/23 13:01 Urine Protein 30 mg/dL (NEGATIVE) H 02/24/23 13:01 Urine Glucose (UA) 100 mg/dL (NEGATIVE) H 02/24/23 13:01 Urine Ketones NEGATIVE mg/dL (NEGATIVE) 02/24/23 13:01 Urine Occult Blood LARGE (NEGATIVE) H 02/24/23 13:01 Urine Nitrite NEGATIVE (NEGATIVE) 02/24/23 13:01 Urine Bilirubin NEGATIVE (NEGATIVE) 02/24/23 13:01 Urine Urobilinogen 2 E.U./dL (NORMAL) H 02/24/23 13:01 Ur Leukocyte Esterase NEGATIVE (NEGATIVE) 02/24/23 13:01 Urine RBC 11-25 /HPF (0-5) H 02/24/23 13:01 Urine WBC 0-3 /HPF (0-5) 02/24/23 13:01 Ur Squamous Epith Cells FEW Squamous (<= Few) 02/24/23 13:01 Urine Bacteria None Seen /HPF (None Seen) 02/24/23 13:01 Ur Microscopic Review INDICATED 02/24/23 13:01 Urine Culture Comments NOT INDICATED 02/24/23 13:01 Salicylates < 1.5 mg/dL 02/24/23 11:53 Urine Opiates Screen NEGATIVE (NEGATIVE) 02/24/23 12:00 Ur Buprenorphine Scrn NEGATIVE (NEGATIVE) 02/24/23 12:00 Ur Oxycodone Screen NEGATIVE (NEGATIVE) 02/24/23 12:00 Urine Methadone Screen NEGATIVE (NEGATIVE) 02/24/23 12:00 Acetaminophen < 0.1 ug/mL 02/24/23 11:53 Ur Barbiturates Screen NEGATIVE (NEGATIVE) 02/24/23 12:00 Ur Tricyclics Screen NEGATIVE (NEGATIVE) 02/24/23 12:00 Ur Phencyclidine Scrn NEGATIVE (NEGATIVE) 02/24/23 12:00 Ur Amphetamine Screen NEGATIVE (NEGATIVE) 02/24/23 12:00 U Methamphetamines Scrn NEGATIVE (NEGATIVE) 02/24/23 12:00 U Benzodiazepines Scrn NEGATIVE (NEGATIVE) 02/24/23 12:00 Urine Cocaine Screen NEGATIVE (NEGATIVE) 02/24/23 12:00 U Cannabinoids Screen NEGATIVE (NEGATIVE) 02/24/23 12:00 Ur Drug Screen Comment CUTOFF CONC BELOW: 02/24/23 12:00 Ethyl Alcohol < 10.0 mg/dL 02/24/23 11:53
[2023-02-26] MEDS: INSULIN REGULAR HUMAN 300 UNIT/3 ML VIAL SUBQ SCH ×2 (00:28→05:47)
[2023-02-26] MEDS: GABAPENTIN 300 MG CAPSULE PO SCH ×3 (05:40→21:39)
[2023-02-26] MEDS: SODIUM CHLORIDE FLUSH 0.9% 10 ML SYRINGE IVP SCH ×3 (05:45→16:27)
[2023-02-26 09:25] LABS: BASOPHILS % (AUTO) 0.7 %; EOSINOPHILS # (AUTO) 0.3 10^3/uL (0.0-0.7); EOSINOPHILS % (AUTO) 6.1 %; HCT - HEMATOCRIT 33.5 % (37.0-47.0); HGB - HEMOGLOBIN 11.1 g/dL (12.0-16.0); LYMPHOCYTES # (AUTO) 1.1 10^3/uL (1.5-3.5); LYMPHOCYTES % (AUTO) 18.8 %; MEAN CORPUSCULAR HEMOGLOBIN 30.9 pg (27.0-31.0); MEAN CORPUSCULAR HGB CONC 33.1 g/dL (32.0-36.0); MEAN CORPUSCULAR VOLUME 93.3 fL (81.0-99.0); MEAN PLATELET VOLUME 11.1 fL (7.9-10.8); MONOCYTES # (AUTO) 0.5 10^3/uL (0.0-1.0); NEUTROPHILS # (AUTO) 3.7 10^3/uL (1.5-6.6); NEUTROPHILS % (AUTO) 66.2 %; PLT - PLATELET COUNT 36 10^3/uL (130-450); RED BLOOD COUNT 3.59 10^6/uL (4.20-5.40); RED CELL DISTRIBUTION WIDTH 15.1 % (12.0-15.0); WHITE BLOOD COUNT 5.6 x10^3/uL (4.8-10.8)
[2023-02-26] MEDS: carvediloL 3.125 MG TABLET PO SCH ×2 (09:32→16:27)
[2023-02-26] MEDS: lisinopriL 20 MG TABLET PO SCH (09:33)
[2023-02-26] MEDS: rifAXIMin 550 MG TABLET PO SCH ×2 (09:33→21:39)
[2023-02-26] MEDS: hydroCHLOROthiazide 25 MG TABLET PO SCH (09:33)
[2023-02-26] MEDS: NICOTINE 14 MG PATCH TOP SCH (09:33)
[2023-02-26 09:35] LABS: INR 1.2 (0.8-1.2); PT - PROTHROMBIN TIME 13.5 secs (9.9-12.6)
[2023-02-26 09:39] LABS: ALBUMIN 3.1 g/dL (3.2-5.5); ALKALINE PHOSPHATASE 62 IU/L (42-121); ALT ALANINE AMINOTRANSFERASE 16 IU/L (10-60); AST ASPARTATE AMINOTRANSFERASE 32 IU/L (10-42); BILIRUBIN,TOTAL 1.2 mg/dL (0.2-1.0); BUN - BLOOD UREA NITROGEN 24 mg/dL (6-20); CARBON DIOXIDE - CO2 31 mmol/L (21-32); CHLORIDE 103 mmol/L (101-111); CREATININE 1.4 mg/dL (0.6-1.3); GFR - MDRD 38 (>89); GLUCOSE 163 mg/dL (74-104); IONIZED CALCIUM IF INDICATED NO; POTASSIUM 3.6 mmol/L (3.5-4.5); SODIUM 139 mmol/L (135-145); TOTAL PROTEIN 6.2 g/dL (6.4-8.9)
[2023-02-26] MEDS: LACTULOSE 10 GM /15 ML UDC PO SCH ×3 (12:22→21:38)
[2023-02-26] MEDS: INSULIN LISPRO 300 UNIT/3 ML PEN SUBQ SCH ×3 (12:53→21:39)
--- NOTE | 2023-02-26 14:07 | PROVIDER PROGRESS NOTE ---
Assessment/Plan - Problem List (1) Hepatic encephalopathy Assessment/Plan: Started on Lactulose 30 mg QID via NGT. CT head is unremarkable. Prior MRI performed by her neurologist did show evidence of encephalomalacia. Follows with Dr. Bonilla, Python Developer in [place] who performs yearly surveillance liver ultrasounds. We do not know if she has any esophageal varices but it appears her portal pressures are elevated. She has not drank any EtOH in 12 years. Ammonia level has decreased from >100 down to 47 today (all labs reviewed) Plan: Since she is A&O x3, will remove NGT today and advance diet. Cont Lactulose po and titrate to 2-3 bowel movements daily. I explained this plan to pt and spouse at bedside Will also give empiric Thiamine Will order PT eval today Anticipate discharge tomorrow on scheduled Lactulose, this plan was reviewed with pt and spouse at bedside (2) Type 2 diabetes mellitus Conclusion/Plan: A1c 7.8 in December. She is on glimiperide at home. Holding since she was hardly eating Plan: Diet to be advanced today and will start a diabetic diet Will change her fingerstick checks from n.p.o. to before meals and at bedtime and continue with sliding scale insulin coverage (3) CKD (chronic kidney disease) Conclusion/Plan: Baseline creatinine is near 1.4. Plan: Avoid nephrotoxins Follow BMP daily Qualifiers: Chronic kidney disease stage: unspecified stage Qualified Code(s): N18.9 - Chronic kidney disease, unspecified (4) Hypertension Conclusion/Plan: Resumed home lisinopril/HCTZ Qualifiers: Hypertension type: primary hypertension Qualified Code(s): I10 - Essential (primary) hypertension (5) Thrombocytopenia Conclusion/Plan: Platelet count is at baseline (in 30's) Holding Heparin products. (6) Hematuria The U/A showed no bacteria and no cx was indicated - Current Meds Current Meds: Current Medications Generic Name Dose Route Start Last Admin Trade Name Freq PRN Reason Stop Dose Admin Acetaminophen 320 mg 02/25/23 12:57 02/25/23 13:45 Acetaminophen 160 Mg/5 Ml Susp Udc PO 320 mg Q6HR PRN Administration Pain or Fever > 38C (100.4F) Carvedilol 3.125 mg 02/25/23 12:06 02/26/23 09:32 Carvedilol 3.125 Mg Tablet PO 3.125 mg BIDWM KAREEM Administration Gabapentin 300 mg 02/25/23 14:00 02/26/23 13:44 Gabapentin 300 Mg Capsule PO 300 mg TID KAREEM Administration Hydrochlorothiazide 25 mg 02/26/23 09:00 02/26/23 09:33 Hydrochlorothiazide 25 Mg Tablet PO 25 mg DAILY KAREEM Administration Insulin Human Lispro 1 - 5 unit 02/26/23 12:35 02/26/23 12:53 Insulin Lispro 300 Unit/3 Ml Pen SUBQ 2 unit 0800,1200,1700,2100 KAREEM Administration Protocol Lactulose 20 gm 02/26/23 14:00 02/26/23 13:44 Lactulose 10 Gm /15 Ml Udc PO 20 gm TID KAREEM Administration Lisinopril 40 mg 02/26/23 09:00 02/26/23 09:33 Lisinopril 20 Mg Tablet PO 40 mg DAILY KAREEM Administration Nicotine 1 patch 02/25/23 09:00 02/26/23 09:33 Nicotine 14 Mg Patch TOP 1 patch DAILY KAREEM Administration Rifaximin 550 mg 02/24/23 21:00 02/26/23 09:33 Rifaximin 550 Mg Tablet PO 550 mg BID KAREEM Administration Sodium Chloride 10 ml 02/24/23 17:00 02/26/23 12:55 Sodium Chloride Flush 0.9% 10 Ml Syringe IVP 10 ml 0100,0900,1700 KAREEM Administration - Lab Result Fish Bone Diagrams: 02/27/23 09:02 02/27/23 09:02 - Additional Planning My Orders: My Active Orders 02/25/23 14:00 Gabapentin [Neurontin] 300 mg PO TID 02/26/23 Evaluate and Treat PT [PT] Routine 02/26/23 09:00 hydroCHLOROthiazide [Hydrodiuril] 25 mg PO DAILY lisinopriL [Zestril] 40 mg PO DAILY 02/26/23 Lunch DIET [Dysphagia - Minced and Moist] [DIET] 02/26/23 12:35 Insulin Lispro [Humalog Kwikpen U-100] 1 - 5 unit SUBQ 0800,1200,1700,2100 02/26/23 12:46 Blood Glucose Checks - Eating [RC] 0800,1200,1700,2100 Initiate Hypoglycemia Protocol [RC] .protocol 02/26/23 14:00 Lactulose [Enulose] 20 gm PO TID 02/26/23 Dinner Hepatic/Renal Diet [DIET] 02/27/23 05:00 AMMONIA [CHEM] DAILYLAB Subjective - Subjective Patient Reports: Feeling Better, Resting Comfortably, Other (Wants to go home. Forgot that I told her yesterday that she may be discharged later in the week) Objective Vital Signs: Vital Signs - 24 hr 02/25/23 02/25/23 02/25/23 15:56 17:00 21:00 Temperature 37.3 C 37.1 C Heart Rate [ 78 77 77 Brachial] Respiratory 20 20 Rate Blood Pressure 133/84 H 160/78 H 123/53 L [Right Brachial artery] O2 Saturation 95 94 If not protocol 3 3 : Oxygen Flow, liters/minute 02/25/23 02/26/23 02/26/23 22:27 00:00 07:51 Temperature 37.1 C 37.1 C Heart Rate [ 72 74 Brachial] Respiratory 20 18 Rate Blood Pressure 143/73 H 147/80 H [Right Brachial artery] O2 Saturation 95 93 97 If not protocol 2 2 2 : Oxygen Flow, liters/minute Oxygen O2 Source Nasal cannula Oxygen Flow Rate 3 I&O (Last 24 Hrs): Intake and Output Totals x24h 02/24/23 02/25/23 02/26/23 23:59 23:59 23:59 Intake Total 920 240 Output Total 1000 0 Balance -80 240 General: Alert, Oriented x3 HEENT: Mucous membr. moist/pink, Other (Obese) Neck: Supple, No JVD Neuro: Alert, Non Focal, Other (No tremor. Poor memory.) Cardiovascular: Regular rate Respiratory: No respiratory distress Abdomen: Soft, No tenderness Extremities: No clubbing, No edema, No tenderness/swelling - Results Results: Laboratory Results WBC 5.6 x10^3/uL (4.8-10.8) 02/26/23 09:16 RBC 3.59 10^6/uL (4.20-5.40) L 02/26/23 09:16 Hgb 11.1 g/dL (12.0-16.0) L 02/26/23 09:16 Hct 33.5 % (37.0-47.0) L 02/26/23 09:16 MCV 93.3 fL (81.0-99.0) 02/26/23 09:16 MCH 30.9 pg (27.0-31.0) 02/26/23 09:16 MCHC 33.1 g/dL (32.0-36.0) 02/26/23 09:16 RDW 15.1 % (12.0-15.0) H 02/26/23 09:16 Plt Count 36 10^3/uL (130-450) L 02/26/23 09:16 MPV 11.1 fL (7.9-10.8) H 02/26/23 09:16 Neut # (Auto) 3.7 10^3/uL (1.5-6.6) 02/26/23 09:16 Lymph # (Auto) 1.1 10^3/uL (1.5-3.5) L 02/26/23 09:16 [place] # (Auto) 0.5 10^3/uL (0.0-1.0) 02/26/23 09:16 Eos # (Auto) 0.3 10^3/uL (0.0-0.7) 02/26/23 09:16 Baso # (Auto) 0.0 10^3/uL (0.0-0.1) 02/26/23 09:16 Absolute Nucleated RBC 0.00 x10^3/uL 02/26/23 09:16 Nucleated RBC % 0.0 /100WBC 02/26/23 09:16 Manual Slide Review Indicated 02/24/23 11:53 WBC Morphology NORMAL APPEARANCE (NORMAL) 02/24/23 11:53 Platelet Estimate DECREASED (<130,000) (NORMAL) 02/24/23 11:53 Platelet Morphology NORMAL APPEARANCE (NORMAL) 02/24/23 11:53 RBC Morph Micro Appear 1+ ANISOCYTOSIS (NORMAL) 02/24/23 11:53 PT 13.5 secs (9.9-12.6) H 02/26/23 09:16 INR 1.2 (0.8-1.2) 02/26/23 09:16 VBG pH 7.386 (7.31-7.41) 02/24/23 11:59 VBG pCO2 51.6 mmHg (41-51) H 02/24/23 11:59 VBG pO2 27.7 mmHg (25-47) 02/24/23 11:59 VBG HCO3 30.3 mmol/L (23-28) H 02/24/23 11:59 VBG Total CO2 31.8 mmol/L (24-29) H 02/24/23 11:59 VBG O2 Saturation 49.7 % (60-80) L 02/24/23 11:59 VBG Base Excess 4.2 mmol/L (-2 - +2) H 02/24/23 11:59 Sodium 139 mmol/L (135-145) 02/26/23 09:16 Potassium 3.6 mmol/L (3.5-4.5) 02/26/23 09:16 Chloride 103 mmol/L (101-111) 02/26/23 09:16 Carbon Dioxide 31 mmol/L (21-32) 02/26/23 09:16 Anion Gap 5.0 (6-13) L 02/26/23 09:16 BUN 24 mg/dL (6-20) H 02/26/23 09:16 Creatinine 1.4 mg/dL (0.6-1.3) H 02/26/23 09:16 Estimated GFR (MDRD) 38 (>89) L 02/26/23 09:16 Glucose 163 mg/dL (74-104) H 02/26/23 09:16 Estimat Average Glucose 197 mg/dL (70-100) H 02/25/23 05:13 Hemoglobin A1c % 8.5 % (4.27-6.07) H 02/25/23 05:13 Lactic Acid 1.0 mmol/L (0.5-2.2) 02/24/23 11:53 Calcium 9.0 mg/dL (8.5-10.3) 02/26/23 09:16 Ionized Calcium NO 02/26/23 09:16 Magnesium 1.6 mg/dL (1.7-2.3) L 02/24/23 11:53 Total Bilirubin 1.2 mg/dL (0.2-1.0) H 02/26/23 09:16 AST 32 IU/L (10-42) 02/26/23 09:16 ALT 16 IU/L (10-60) 02/26/23 09:16 Alkaline Phosphatase 62 IU/L (42-121) 02/26/23 09:16 Ammonia 47.3 umol/L (18-72) 02/26/23 09:16 Total Protein 6.2 g/dL (6.4-8.9) L 02/26/23 09:16 Albumin 3.1 g/dL (3.2-5.5) L 02/26/23 09:16 Globulin 3.1 g/dL (2.1-4.2) 02/26/23 09:16 Albumin/Globulin Ratio 1.0 (1.0-2.2) 02/26/23 09:16 Lipase 54 U/L (11-82) 02/24/23 11:53 TSH 2.44 uIU/mL (0.34-5.60) 02/24/23 11:53 Urine Color YELLOW 02/24/23 13:01 Urine Clarity CLEAR (CLEAR) 02/24/23 13:01 Urine pH 7.5 PH (5.0-7.5) 02/24/23 13:01 Ur Specific [place] 1.010 (1.002-1.030) 02/24/23 13:01 Urine Protein 30 mg/dL (NEGATIVE) H 02/24/23 13:01 Urine Glucose (UA) 100 mg/dL (NEGATIVE) H 02/24/23 13:01 Urine Ketones NEGATIVE mg/dL (NEGATIVE) 02/24/23 13:01 Urine Occult Blood LARGE (NEGATIVE) H 02/24/23 13:01 Urine Nitrite NEGATIVE (NEGATIVE) 02/24/23 13:01 Urine Bilirubin NEGATIVE (NEGATIVE) 02/24/23 13:01 Urine Urobilinogen 2 E.U./dL (NORMAL) H 02/24/23 13:01 Ur Leukocyte Esterase NEGATIVE (NEGATIVE) 02/24/23 13:01 Urine RBC 11-25 /HPF (0-5) H 02/24/23 13:01 Urine WBC 0-3 /HPF (0-5) 02/24/23 13:01 Ur Squamous Epith Cells FEW Squamous (<= Few) 02/24/23 13:01 Urine Bacteria None Seen /HPF (None Seen) 02/24/23 13:01 Ur Microscopic Review INDICATED 02/24/23 13:01 Urine Culture Comments NOT INDICATED 02/24/23 13:01 Salicylates < 1.5 mg/dL 02/24/23 11:53 Urine Opiates Screen NEGATIVE (NEGATIVE) 02/24/23 12:00 Ur Buprenorphine Scrn NEGATIVE (NEGATIVE) 02/24/23 12:00 Ur Oxycodone Screen NEGATIVE (NEGATIVE) 02/24/23 12:00 Urine Methadone Screen NEGATIVE (NEGATIVE) 02/24/23 12:00 Acetaminophen < 0.1 ug/mL 02/24/23 11:53 Ur Barbiturates Screen NEGATIVE (NEGATIVE) 02/24/23 12:00 Ur Tricyclics Screen NEGATIVE (NEGATIVE) 02/24/23 12:00 Ur Phencyclidine Scrn NEGATIVE (NEGATIVE) 02/24/23 12:00 Ur Amphetamine Screen NEGATIVE (NEGATIVE) 02/24/23 12:00 U Methamphetamines Scrn NEGATIVE (NEGATIVE) 02/24/23 12:00 U Benzodiazepines Scrn NEGATIVE (NEGATIVE) 02/24/23 12:00 Urine Cocaine Screen NEGATIVE (NEGATIVE) 02/24/23 12:00 U Cannabinoids Screen NEGATIVE (NEGATIVE) 02/24/23 12:00 Ur Drug Screen Comment CUTOFF CONC BELOW: 02/24/23 12:00 Ethyl Alcohol < 10.0 mg/dL 02/24/23 11:53
[2023-02-27] MEDS: SODIUM CHLORIDE FLUSH 0.9% 10 ML SYRINGE IVP SCH ×2 (00:19→10:18)
[2023-02-27] MEDS: LACTULOSE 10 GM /15 ML UDC PO SCH (05:34)
[2023-02-27] MEDS: GABAPENTIN 300 MG CAPSULE PO SCH (05:35)
[2023-02-27 08:07] VITALS: BP 128/80; O2SAT 97
[2023-02-27 09:17] LABS: BASOPHILS % (AUTO) 0.4 %; EOSINOPHILS # (AUTO) 0.4 10^3/uL (0.0-0.7); EOSINOPHILS % (AUTO) 6.7 %; HCT - HEMATOCRIT 30.6 % (37.0-47.0); HGB - HEMOGLOBIN 10.5 g/dL (12.0-16.0); LYMPHOCYTES # (AUTO) 1.2 10^3/uL (1.5-3.5); LYMPHOCYTES % (AUTO) 21.2 %; MEAN CORPUSCULAR HEMOGLOBIN 31.4 pg (27.0-31.0); MEAN CORPUSCULAR HGB CONC 34.3 g/dL (32.0-36.0); MEAN CORPUSCULAR VOLUME 91.6 fL (81.0-99.0); MEAN PLATELET VOLUME 10.3 fL (7.9-10.8); MONOCYTES # (AUTO) 0.5 10^3/uL (0.0-1.0); NEUTROPHILS # (AUTO) 3.5 10^3/uL (1.5-6.6); NEUTROPHILS % (AUTO) 62.5 %; RED BLOOD COUNT 3.34 10^6/uL (4.20-5.40); WHITE BLOOD COUNT 5.7 x10^3/uL (4.8-10.8)
[2023-02-27 09:22] LABS: PLT - PLATELET COUNT 35 10^3/uL (130-450)
[2023-02-27 09:30] LABS: ALBUMIN/GLOBULIN RATIO 1.1 (1.0-2.2); ALKALINE PHOSPHATASE 57 IU/L (42-121); ALT ALANINE AMINOTRANSFERASE 15 IU/L (10-60); AST ASPARTATE AMINOTRANSFERASE 28 IU/L (10-42); BILIRUBIN,TOTAL 1.3 mg/dL (0.2-1.0); BUN - BLOOD UREA NITROGEN 25 mg/dL (6-20); CALCIUM 8.8 mg/dL (8.5-10.3); CARBON DIOXIDE - CO2 27 mmol/L (21-32); CHLORIDE 102 mmol/L (101-111); CREATININE 1.5 mg/dL (0.6-1.3); GFR - MDRD 36 (>89); GLUCOSE 281 mg/dL (74-104); IONIZED CALCIUM IF INDICATED NO; POTASSIUM 3.7 mmol/L (3.5-4.5); SODIUM 135 mmol/L (135-145); TOTAL PROTEIN 5.7 g/dL (6.4-8.9)
[2023-02-27 09:36] LABS: INR 1.2 (0.8-1.2); PT - PROTHROMBIN TIME 13.5 secs (9.9-12.6)
[2023-02-27] MEDS: lisinopriL 20 MG TABLET PO SCH (09:58)
[2023-02-27] MEDS: carvediloL 3.125 MG TABLET PO SCH (09:58)
[2023-02-27] MEDS: NICOTINE 14 MG PATCH TOP SCH (09:58)
[2023-02-27] MEDS: INSULIN LISPRO 300 UNIT/3 ML PEN SUBQ SCH ×2 (09:59→12:43)
[2023-02-27] MEDS: rifAXIMin 550 MG TABLET PO SCH (10:18)
[2023-02-27] MEDS: hydroCHLOROthiazide 25 MG TABLET PO SCH (10:18)
--- NOTE | 2023-02-27 10:55 | Discharge Plan ---
Discharge Plan Problem Reviewed?: Yes Disposition: Home, Self Care Condition: Fair Prescriptions: Lactulose 20 gm PO TID #90 ml Diet: Diabetic Activity Restrictions: Activity as Tolerated Shower Restrictions: No Driving Restrictions: No (Do not drive a car if you are confused or sleepy) Instruction Topics: Ammonia Health Concerns: You were hospitalized to treat a high blood Ammonia level, caused by liver failure, caused by remote alcoholic cirrhosis. You needed to be started back up on Lactulose. You are being discharged home today with a new prescription for Lactulose. Please take it at least twice a day, preferably 3 times a day and dose it so that bowel movements do not interfere with your job and aim for about 3 BMs per day. Your may resume all your other pre-hospital medications and management. You should see your Bench Inspector in [place] soon, because of this hospitalization and the need for resumed Lactulose, to get any further recommendations. Plan of Treatment: As above. Care Goals: Improvement in symptoms and stabilization are the goals. Assessment: Patient understands and is agreeable with the plan. Additional Instructions or Follow Up instructions: If you have new or worsening symptoms, call your Primary Care Provider or your Bench Inspector for advice, or come to the ER. No Smoking: If you smoke, Please STOP! Call for help. Follow-up with: Pawel Bonilla MD [Physician No Access] -
--- NOTE | 2023-02-27 11:00 | DISCHARGE SUMMARY ---
Discharge Summary Admit Date: 02/24/23 Discharge Date: 02/27/23 Discharging Provider: Dr Ellen Fisher Primary Care Provider: Dr Nelly Yu Code Status: Attempt Resuscitation Condition at Discharge: Fair Discharge Disposition: 01 Home, Self Care - HPI History of Present Illness: Patient is a 57-year-old female with past medical history of type 2 diabetes, alcoholic cirrhosis (sober 12 years), hypertension who presented to the ED due t o progressively worsening confusion since November. Her partner reports that her symptoms peaked today and she noticed the patient was walking around asking where the restroom was and urinating on herself. In the ED a CT head was performed which was unremarkable. Right upper quadrant ultrasound was also performed showing cirrhosis with portal hypertension. Patient was noted to have an elevated ammonia and was started on lactulose via NG tube placement and she was unable to swallow. Patient also had hematuria and there is some suspicion for urinary tract infection. There has been continued workup regarding the source of her encephalopathy. She recently had a neurology follow-up where they performed an MRI which revealed evidence of some encephalomalacia. She is also had a TTE which shows a preserved EF. Patient had an A1c of 7.6 in December. She does follow-up with a certified phlebotomy technician in [place] named Dr. Bonilla. Partner reports that she has yearly EGDs and has a history of a duodenal polyp removal. Unclear if patient has any esophageal varices. Had been on lactulose many years ago but was discontinued and she had been fine off of it. Patient is a full code. - HOSPITAL COURSE Hospital Course: (1) Hepatic encephalopathy Her CT head was unremarkable. Prior MRI performed by her Neurologist did show evidence of encephalomalacia. She said she follows with Dr. Bonilla, Dealer Development Manager in [place], who she sees yearly and gets surveillance liver ultrasounds. We do not know if she has any esophageal varices but it appears her portal pressures are elevated, by imaging. She stated she had not drank any alcohol in 12 years. She was started on Lactulose 30 mg QID via ng tube. Ammonia level decreased, she became more alert and the ng was removed, then an oral diet and oral Lactulose was started. She was seen by PT and had ataxia and outpatient PT was advised. At discharge, she was prescribed (new) Lactulose 20 gm po TID. No driving if confused or somnolent, was advised. Follow-up soon with Dr Bonilla was advised. This plan was reviewed by me with the patient and spouse at bedside and all their questions were answered to their satisfaction. (2) Type 2 diabetes mellitus A1c was 7.8 in December. She was on Glimiperide at home. Here when her diet was advanced, she got fingerstick checks and sliding scale insulin coverage. Glimepiride was advised to be resumed at discharge. (3) CKD (chronic kidney disease) Baseline creatinine was at 1.4. (4) Hypertension We continued her home dose of Lisinopril/HCTZ and while needing iv fluids, the Coreg dose was lower, at 3.125 mg BID (5) Thrombocytopenia Platelet count was at her baseline (in 30's). She got no Heparin products. (6) Hematuria The U/A showed no bacteria, no cx was indicated, thus empiric antibiotics were not continued. - ALLERGIES Allergies/Adverse Reactions: Allergies Allergy/AdvReac Type Severity Reaction Status Date / Time No Known Drug Allergies Allergy Verified 11/26/22 15:05 - MEDICATIONS Home Medications: Ambulatory Orders Medication Instructions Recorded Confirmed Glimepiride [Amaryl] 8 mg PO 0800 12/15/22 02/25/23 hydroCHLOROthiazide [Hydrodiuril] 25 mg PO DAILY 12/15/22 02/25/23 Albuterol Sulf [Ventolin Hfa 2 puffs INH Q4H PRN 02/25/23 02/25/23 Inhaler] Gabapentin [Neurontin] 300 mg PO TID 02/25/23 02/25/23 Lansoprazole [Prevacid] 15 mg PO QDAC 02/25/23 02/25/23 Lisinopril [Zestril] 20 mg PO DAILY 02/25/23 02/25/23 Ondansetron HCl 4 mg PO Q8H PRN 02/25/23 02/25/23 carvediloL [Coreg] 12.5 mg PO BIDWM 02/25/23 02/25/23 Lactulose 20 gm PO TID #90 ml 02/27/23 - PHYSICAL EXAM AT DISCHARGE General Appearance: positive: No acute distress, Alert, Other (Obese (BMI 38)) Eyes Bilateral: positive: Normal inspection, EOMI, No lid inflammation ENT: positive: ENT inspection nml, No signs of dehydration Neck: positive: Nml inspection, No JVD Respiratory: positive: No respiratory distress Cardiovascular: positive: Regular rate & rhythm Abdomen: positive: Non-tender, No distention Skin: positive: Warm, Dry Extremities: positive: Non-tender Neurologic/Psychiatric: positive: Oriented x3, CN's nml (2-12), Other (Ataxic gait (per PT).) - LABS Result Diagrams: 02/27/23 09:02 02/27/23 09:02 - DIAGNOSTIC IMAGING Diagnostic Imaging Results: Final report reviewed - FOLLOW UP Follow Up: See PCP in hosp F/U and see Dealer Development Manager soon. - TIME SPENT Time Spent in Discharge (Minutes): 45
== END 2023-02-27 13:10 | disposition home or self-care (01) | DRG 442 ==
LOC: EDUNIT# → ED 11:30 → MS3 15:11
PROVIDERS: ADMIT Family Medicine; ATTEND Internal Medicine
DX: K76.82 Hepatic encephalopathy (principal); K76.6 Portal hypertension; K70.30 Alcoholic cirrhosis of liver without ascites; E11.22 Type 2 diabetes mellitus with diabetic chronic kidney disease; I12.9 Hypertensive chronic kidney disease with stage 1 through stage 4 chronic kidney disease, or unspecified chronic kidney disease; N18.9 Chronic kidney disease, unspecified; D69.6 Thrombocytopenia, unspecified; R31.9 Hematuria, unspecified; G93.89 Other specified disorders of brain; R30.0 Dysuria; Z79.84 Long term (current) use of oral hypoglycemic drugs; K72.90 Hepatic failure, unspecified without coma
CPT/HCPCS: 36415; 70450; 71045; 76705; 80053; 80306; 80307; 80320; 80329; 81001; 82140; 82803; 83036; 83605; 83690; 83735; 84443; 85025; 85610; 87040; 87086; 93005; 94640; 97116; 97161; A9270; J1815; J2060; J8499; 81003

== ENCOUNTER 2023-06-12 12:03 | Emergency (ER) | payer BC ==
--- NOTE | 2023-06-12 12:43 | XRAY Report ---
PROCEDURE: Chest 1V INDICATIONS: dyspnea TECHNIQUE: One view of the chest was acquired. COMPARISON: None. FINDINGS: Surgical changes and devices: None. Lungs and pleura: Question mild interstitial pulmonary edema. Question small pleural effusions and p atchy bibasilar atelectasis. Mediastinum: Mediastinal contours appear normal. Mild cardiomegaly. Bones and chest wall: No suspicious bony lesions. Overlying soft tissues appear unremarkable. IMPRESSION: Probable mild congestive heart failure. Reviewed by: Mehdi Eubanks MD on 06/12/2023 12:42 PM PDT Approved by: Mehdi Eubanks MD on 06/12/2023 12:42 PM PDT Station ID: [id number]
[2023-06-12 13:36] LABS: BASOPHILS % (AUTO) 0.5 %; EOSINOPHILS # (AUTO) 0.3 10^3/uL (0.0-0.7); EOSINOPHILS % (AUTO) 6.9 %; HGB - HEMOGLOBIN 9.7 g/dL (12.0-16.0); LYMPHOCYTES # (AUTO) 0.8 10^3/uL (1.5-3.5); LYMPHOCYTES % (AUTO) 20.7 %; MEAN CORPUSCULAR HEMOGLOBIN 31.1 pg (27.0-31.0); MEAN CORPUSCULAR HGB CONC 30.3 g/dL (32.0-36.0); MEAN CORPUSCULAR VOLUME 102.6 fL (81.0-99.0); MEAN PLATELET VOLUME 11.7 fL (7.9-10.8); MONOCYTES # (AUTO) 0.3 10^3/uL (0.0-1.0); NEUTROPHILS # (AUTO) 2.4 10^3/uL (1.5-6.6); NEUTROPHILS % (AUTO) 63.4 %; RED BLOOD COUNT 3.12 10^6/uL (4.20-5.40); WHITE BLOOD COUNT 3.8 x10^3/uL (4.8-10.8)
[2023-06-12 13:42] LABS: PLT - PLATELET COUNT 29 10^3/uL (130-450)
[2023-06-12 13:51] LABS: ALBUMIN/GLOBULIN RATIO 0.9 (1.0-2.2); BILIRUBIN,TOTAL 1.1 mg/dL (0.2-1.0); CALCIUM 8.9 mg/dL (8.5-10.3); CREATININE 1.6 mg/dL (0.6-1.3); TOTAL PROTEIN 6.2 g/dL (6.4-8.9)
[2023-06-12] MEDS: FUROSEMIDE 40 MG/4 ML VIAL IVP STA (13:56)
--- NOTE | 2023-06-12 15:25 | ED Physician Documentation ---
History of Present Illness - Stated complaint Stated Complaint: SOA,LEG SWELLING - Chief complaint Chief Complaint: General - History obtained from History obtained from: Patient, Family - Additonal information Additional information: The pt is sent to the ED by PCP for "work-up for congestive heart failure". The pt has a h/o alcoholic liver failure (though she quit drinking 12 years ago) and chronically elevated ammonia level (last measurement through [facility] 119 about 3 weeks ago, on lactulose). She also has a h/o renal insufficiency with referral to nephrology pending. She is seen by cardiology/[facility], and in the past few months had a work-up including angiogram (clear), stress echo (showing EF 40% with mild hypokinesis of L ventricle) and multiple labs. She has chronic pancytopenia, especially with thrombocytopenia. She states her PCP took her off of her HCTZ, due to concerns about her kidneys, for several weeks. Over that time, the pt states she began swelling more and more, and becoming somewhat dyspneic, so her PCP put her back on the HCTZ at 25 mg each morning. The pt states she has been back on this for 3 days, and while it has improved her edema in the torso slightly, her legs are very tight, and she still has a mild sense of dyspnea. No fevers or chills. No chest pain. PD PAST MEDICAL HISTORY - Past Medical History Past Medical History: Yes Cardiovascular: Hypertension Respiratory: Asthma, COPD, Sleep apnea Neuro: None Endocrine/Autoimmune: None GI: GERD, Colon polyps, Hemorrhoids, Cirrhosis : Incontinence Psych: None Musculoskeletal: None Derm: Psoriasis - Past Surgical History Past Surgical History: No - Present Medications Home Medications: Ambulatory Orders Medication Instructions Recorded Confirmed Glimepiride [Amaryl] 8 mg PO 0800 12/15/22 06/12/23 hydroCHLOROthiazide [Hydrodiuril] 25 mg PO DAILY 12/15/22 06/12/23 Albuterol Sulf [Ventolin Hfa 2 puffs INH Q4H PRN 02/25/23 06/12/23 Inhaler] Gabapentin [Neurontin] 400 mg PO TID 02/25/23 06/12/23 Lansoprazole [Prevacid] 15 mg PO QDAC 02/25/23 06/12/23 Ondansetron HCl 4 mg PO Q8H PRN 02/25/23 06/12/23 carvediloL [Coreg] 12.5 mg PO BIDWM 02/25/23 06/12/23 Lactulose 20 gm PO TID #180 ea 02/27/23 06/12/23 Semaglutide [Ozempic] 0.25 mg SQ OAW 06/12/23 06/12/23 - Allergies Allergies/Adverse Reactions: Allergies Allergy/AdvReac Type Severity Reaction Status Date / Time No Known Drug Allergies Allergy Verified 06/12/23 12:14 - Social History Does the pt smoke?: No Smoking Status: Never smoker Does the pt drink ETOH?: No Does the pt have substance abuse?: No - Immunizations Immunizations are current?: Yes - POLST Patient has POLST: No PD ED PE NORMAL - Vitals Vital signs reviewed: Yes - General General: Alert and oriented X 3, No acute distress, Well developed/nourished - HEENT HEENT: Atraumatic, PERRL, EOMI, Moist mucous membranes - Neck Neck: Supple, no meningeal sign - Cardiac Cardiac: RRR, No murmur - Respiratory Respiratory: No respiratory distress, Clear bilaterally - Abdomen Abdomen: Soft, Non tender, Other (obese) - Derm Derm: Normal color, Warm and dry, No rash - Extremities Extremities: No deformity, Other (Marked edema bilateral LE with tight skin over calves. Edema abates significantly above the knees, though still present.) - Neuro Neuro: Alert and oriented X 3 - Psych Psych: Normal mood, Normal affect Results - Vitals Vitals: Vital Signs - 24 hr 06/12/23 06/12/23 06/12/23 12:08 14:04 15:28 Temperature 36.8 C Heart Rate 86 78 74 Respiratory 20 20 15 Rate Blood Pressure 200/100 H 165/86 H 164/85 H O2 Saturation 92 96 94 If not protocol 2 : Oxygen Flow, liters/minute Oxygen O2 Source Nasal cannula Oxygen Flow Rate 2 - Labs Labs: Laboratory Tests 06/12/23 06/12/23 06/12/23 13:20 13:20 13:20 WBC 3.8 L RBC 3.12 L Hgb 9.7 L Hct 32.0 L MCV 102.6 H MCH 31.1 H MCHC 30.3 L RDW 18.0 H Plt Count 29 L* MPV 11.7 H Neut # (Auto) 2.4 Lymph # (Auto) 0.8 L Perry # (Auto) 0.3 Eos # (Auto) 0.3 Baso # (Auto) 0.0 Absolute Nucleated RBC 0.00 Nucleated RBC % 0.0 Sodium 141 Potassium 4.0 Chloride 103 Carbon Dioxide 37 H Anion Gap 1.0 L BUN 27 H Creatinine 1.6 H Estimated GFR (MDRD) 33 L Glucose 175 H Calcium 8.9 Total Bilirubin 1.1 H AST 40 ALT 20 Alkaline Phosphatase 100 Ammonia B-Natriuretic Peptide 215 H Total Protein 6.2 L Albumin 3.0 L Globulin 3.2 Albumin/Globulin Ratio 0.9 L Lipase 74 06/12/23 13:20 WBC RBC Hgb Hct MCV MCH MCHC RDW Plt Count MPV Neut # (Auto) Lymph # (Auto) Perry # (Auto) Eos # (Auto) Baso # (Auto) Absolute Nucleated RBC Nucleated RBC % Sodium Potassium Chloride Carbon Dioxide Anion Gap BUN Creatinine Estimated GFR (MDRD) Glucose Calcium Total Bilirubin AST ALT Alkaline Phosphatase Ammonia 93.4 H* B-Natriuretic Peptide Total Protein Albumin Globulin Albumin/Globulin Ratio Lipase - Rads (name of study) Chest XR Relevant Findings:: Final report received (Probable mild CHF) PD Medical Decision Making - ED course Complexity details: reviewed old records, reviewed results, re-evaluated patient, considered differential, d/w patient, d/w family ED course: The pt was worked up with CXR, which showed probable mild CHF, and a BNP, which was 215. Her sats were 95% on RA, her lungs were clear, and she had no laboring of respirations. Her platelets were 29, and GFR was 33. She was given 80 mg of Lasix IV, and did produce a large amount of urine in the toilet. We discussed the need for temporary increase in diuretics, and will double the pt's HCTZ dose for 1 week only. After this, she should return to her usual dosing regimen. We have discussed the need for close follow-up with her PCP, as well as the usual indications for return. Departure - Departure Disposition: 01 Home, Self Care Clinical Impression: Fluid retention in legs, Renal insufficiency Congestive heart failure Qualifiers: Heart failure type: unspecified Heart failure chronicity: unspecified Qualified Code(s): I50.9 - Heart failure, unspecified Liver failure Qualifiers: Liver failure chronicity: chronic Hepatic coma status: without hepatic coma Qualified Code(s): K72.10 - Chronic hepatic failure without coma Condition: Stable Instructions: ED CHF General, ED Edema Legs Bilateral Comments: Your laboratory studies today show that you have some mild congestive heart failure and retention of fluid on exam. Your echocardiogram, or heart ultrasound, showed that you do have some decreased strength of your heart muscle contraction and this is probably contributing to the congestive heart failure and swelling you are having. However, the slowing of your kidneys and also, your liver issues can also contribute to the swelling. We have given you an extra dose of diuretic here in the emergency department and given the slow response to the diuretic as yet and the sense of shortness of breath, would r ecommend that you increase your hydrochlorothiazide to either 25 mg twice daily or 50 mg once daily for the next week. After that, you may go back to your regular hydrochlorothiazide dose of 25 mg once daily. You were found to have blood cells that are low across the board which sounds like has been a chronic issue for you. If you begin to have spontaneous bleeding into your stools or elsewhere that is of concern, you should return and have your platelets rechecked and be reevaluated. Otherwise, please follow-up with your primary doctor and the kidney specialist as planned for further evaluation. Forms: PCP List Discharge Date/Time: 06/12/23 15:48
[2023-06-12 15:29] VITALS: BP 164/85; O2SAT 94
== END 2023-06-12 15:48 | disposition home or self-care (01) ==
LOC: ED 12:03
DX: R60.0 Localized edema (principal); N28.9 Disorder of kidney and ureter, unspecified; I11.0 Hypertensive heart disease with heart failure; I50.9 Heart failure, unspecified; K72.10 Chronic hepatic failure without coma; J44.9 Chronic obstructive pulmonary disease, unspecified; D61.818 Other pancytopenia; D69.6 Thrombocytopenia, unspecified; Z79.899 Other long term (current) drug therapy
CPT/HCPCS: 36415; 80053; 82140; 83690; 83880; 85025; 96374; 99284

== ENCOUNTER 2023-07-30 10:14 | Outpatient (CLI) | payer BC ==
--- NOTE | 2023-07-30 10:56 | Sleep Patient Instructions ---
Sleep Center Visit Summary - Patient Visit Information Reason for Visit: Initial consult for evaluation of sleep disordered breathing and other sleep issues. - Patient Instructions Additional Instructions: You will be completing a sleep study, either an in-lab polysomnography (PSG) or home sleep study (HST). You will follow-up in the sleep care office after the sleep study is completed to hear the results and talk about therapy, if needed. You will be called by our office staff to schedule this appointment, but you may contact us with any questions. - Clinic Information Contact: [facility] [address] [place] [id number] [email or web address] T: [phone]
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
[2023-07-30 11:06] VITALS: BP 140/69; O2SAT 94
== END 2023-07-30 10:15 | disposition home or self-care (01) ==
LOC: SC 10:14
PROVIDERS: ATTEND Nurse Practitioner Family
DX: G47.33 Obstructive sleep apnea (adult) (pediatric) (principal); E66.01 Morbid (severe) obesity due to excess calories; Z68.41 Body mass index [BMI] 40.0-44.9, adult
CPT/HCPCS: 99203; 99212

== ENCOUNTER 2023-08-28 10:25 | Outpatient (CLI) | payer BC | END 2023-08-28 10:26 | disposition home or self-care (01) | LOC: SC 10:25 | PROVIDERS: ATTEND Nurse Practitioner Family | DX: G47.33 Obstructive sleep apnea (adult) (pediatric) (principal); I10 Essential (primary) hypertension; E66.9 Obesity, unspecified; Z68.41 Body mass index [BMI] 40.0-44.9, adult; E11.9 Type 2 diabetes mellitus without complications | CPT/HCPCS: 95806 ==

== ENCOUNTER 2023-11-19 14:27 | Outpatient (CLI) | payer BC ==
--- NOTE | 2023-11-19 14:56 | Sleep Patient Instructions ---
Sleep Center Visit Summary - Patient Visit Information Reason for Visit: Sleep study follow-up - Patient Instructions Additional Instructions: You are being started on CPAP therapy with pressure setting at 4-15 cmH2O. You will need to call the sleep care office to set up your follow up once you have your CPAP machine to check compliance and response to therapy at that time. You may call the office with any concerns about pressure feeling too low or too much for adjustment, if needed. You should contact DME supplier for any questions or concerns about mask or equipment. Please call office to schedule a follow up appointment in the sleep care office one month after obtaining new device. - Clinic Information Contact: [facility] [address] [place] [address] [email or web address] T: [phone]
--- NOTE | 2023-11-19 15:00 | SLEEP CARE CONSULTATION ---
Information from patient questionnaire entered by Concha Browne. I have reviewed and concur with the information entered by Concha Browne. This document represents the service I personally performed and the decisions made by , Chelle Rivas ARNP. History of Present Illness Service Date and Time: 11/19/20231426 Initial [place] Sleepiness Scale score: 16 (07/30/23) Current [place] Sleepiness Scale score: 16 (11/19/23) Additional HPI information: RAUL WHYTE returns for follow up and results of the recently performed home sleep study. The sleep study done on 08/28/23 showed mild obstructive sleep apnea with an average AHI of 8.2 and tulio oxygen saturation of 76%. I explained the pathophysiology behind obstructive sleep apnea. We then spent quite a bit of time discussing different treatment options. For mild obstructive sleep apnea, surgery and oral appliance are alternatives to nasal CPAP therapy but in moderate or severe cases, nasal CPAP is the most effective and reliable treatment. Because apnea is primarily in supine position, then positional management therapy could be effective. Methods discussed such as positioning with pillows, using a T-shirt with tennis balls in the back or commercial products that have a pillow format on back to prevent supine sleep. I reviewed the impact of weight changes on sleep apnea and strongly recommended losing weight. After some discussion, the patient opted to go with the nasal CPAP therapy. Nasal autoCPAP set at 4-15 cmH20 will be ordered with rationale explained. A manual titration study will be ordered if unable to find optimal pressure with office adjustments. I explained how CPAP machine works and what to expect when using the machine. Using CPAP every night in order to get used to it was emphasized. Patient advised to put CPAP mask on before getting into bed so as not to fall asleep without CPAP. To assist acclimation to CPAP use, it could also be used for a short time during day while reading or watching TV. The patient was instructed to call the CPAP supplier to discuss any mechanical problem that may occur. If the mask given is uncomfortable or is difficult to keep on through the night even with adjustment, contact the CPAP supplier as many will replace with another mask style if notified before 30 days. If snoring or perceives is not getting enough air or too much air from the machine, notify this office. Sleep Study - Results Type of Sleep Study: Home sleep study (COMPLETED 08/28/23) Prior sleep studies: Yes Polysomnography/Home Sleep Study results: Physician Impression: The quality of the study is good. The length of the study is adequate (> 240 minutes). Please also see the tabulated and graphic data. 1. Obstructive Sleep Apnea-Hypopnea (ICD-10 G47.33), mild, with an AHI of 8.2/hr and tulio SaO2 of 76%. During the study, the patient had 23 apneas (23 obstructive, 0 central, 0 mixed) and 38 hypopneas. The longest episode lasted 125.0 seconds. The respiratory events occurred almost exclusively during supine sleep (supine AHI was 18.7 and non-supine, 3.80). 2. Hypoxemia (ICD-10 R09.02), moderate, with the lowest oxygen saturation of 76 % and 41.7 minutes with SaO2 under 90%. Baseline oxygen saturation was normal (Average oxygen saturation was 92%). Allergies and Home Medications Known drug allergies: No Drug allergies reviewed: Yes Home medication list reviewed: Yes (Jardiance ) Allergy and home medication list: Allergies No Known Drug Allergies Allergy (Verified 11/19/23 14:32) Home Medications Medication Instructions Recorded Confirmed Last Taken Type Albuterol Sulf [Ventolin Hfa 2 puffs INH Q4H PRN 02/25/23 11/19/23 Unknown History Inhaler] Gabapentin [Neurontin] 400 mg PO TID 02/25/23 11/19/23 Unknown History Lansoprazole [Prevacid] 15 mg PO QDAC 02/25/23 11/19/23 Unknown History Ondansetron HCl 4 mg PO Q8H PRN 02/25/23 11/19/23 Unknown History carvediloL [Coreg] 12.5 mg PO BIDWM 02/25/23 11/19/23 Unknown History Lactulose 20 gm PO TID #180 ea 02/27/23 11/19/23 Unknown Rx Semaglutide [Ozempic] 0.25 mg SQ OAW 06/12/23 11/19/23 Unknown History Empagliflozin [Jardiance] See Rx Instructions .ROUTE .COMPLEX 07/30/23 11/19/23 Unknown History Lactobacillus Combination No.4 See Rx Instructions .ROUTE .COMPLEX 07/30/23 11/19/23 Unknown History [Probiotic] Vitamin E See Rx Instructions .ROUTE .COMPLEX 07/30/23 11/19/23 Unknown History Review of Systems Review of systems same as previous: Yes (NO CHANGE) Physical Exam Vital signs obtained and entered by: CONCHA Carreon MA Blood Pressure: 123/79 (RIGHT ARM) Cuff size: long Heart Rate: 80 O2 Saturation: 96 Height: 5 ft 2 in Weight: 208 lb 12.8 oz Weight change since last visit: 22 lb loss Body Mass Index: 38.2 BMI Classification: Obese Impression and Plan 1. Obstructive Sleep Apnea-Hypopnea Syndrome, mild, with lowest oxygen saturation of 76%. Obviously this is the cause of the patients symptoms of unrefreshed sleep, and excessive daytime sleepiness. Positive pressure therapy c ould benefit hypertension, CHF, diabetes and gastric reflux. As mentioned above, the patient will be started on nasal autoCPAP therapy with pressure set at 4-15 cmH2O. A manual titration study will be completed if unable to find optimal treatment pressure with office adjustments. Compliance guidelines also reviewed. A copy of compliance guidelines will be given for reference at check out. Because the apnea is more severe supine, I instructed to avoid sleeping supine using pillow positioning until able to start CPAP use. 2. Hypoxemia, moderate, with a tulio oxygen saturation of 76% and 41.7 minutes spent under 90%. The baseline oxygen saturation was normal with an average oxygen saturation of 92%. 3. Obesity, unspecified. Currently patients BMI is 38.2. She has lost weight. Obesity increases the risk of apnea, CPAP pressure requirements and overall health risks especially cardiovascular and diabetes. Thus patient is advised to continue to try to lose weight. * Nasal auto CPAP therapy, pressure at 4-15 cmH2O. * Attempt to lose weight. * Avoid alcohol consumption near bedtime. * Avoid supine sleep until using CPAP. * The patient is again cautioned about driving until sleepiness completely resolves. * Return one month after CPAP obtained. I will assess response to therapy and compliance at that time. Counseling Topics: Sleeping position, Weight loss health impact Prescriptions: Auto CPAP Visit Type: In Office Time Spent with Patient (minutes): 20 Provider Statement: I spent 100% of the Face to Face Visit with the patient with greater than 50% spent counseling the patient and coordination of care.
[2023-11-19 15:07] VITALS: BP 123/79; O2SAT 96
== END 2023-11-19 14:28 | disposition home or self-care (01) ==
LOC: SC 14:27
PROVIDERS: ATTEND Nurse Practitioner Family
DX: G47.33 Obstructive sleep apnea (adult) (pediatric) (principal); R09.02 Hypoxemia; E66.9 Obesity, unspecified; Z68.38 Body mass index [BMI] 38.0-38.9, adult
CPT/HCPCS: 99212; 99213